=== PATIENT | female | born 1930 | race Caucasian/White ===

== ENCOUNTER 2017-06-19 16:30 | Inpatient (IN) ==
[2017-06-19] MEDS ORDERED: Ipratropium/Albuterol Neb 3 ML IH ONE (16:58)
[2017-06-19] MEDS ORDERED: methylPREDNISolone 125 MG/2 ML VIAL IVP ONE (16:59)
[2017-06-19 17:34] LABS: Calcium 9.4 mg/dL (8.6-10.8); Potassium 4.5 mEq/L (3.5-4.5)
[2017-06-19 17:36] LABS: Basophils % 0.1 %; Eosinophils % 0.1 %; Hematocrit 26.2 % (35.3-44.9); Hemoglobin 7.6 g/dL (11.5-15.4); Immature Granulocytes % 0.6 % (0-4); Immature Platelets 9.4 % (1.1-6.1); Lymphocytes # 0.6 K/mcL (0.6-4.6); Lymphocytes % 4.5 %; Mean Corpuscular Hemoglobin 24.9 pg (28.0-33.3); Mean Corpuscular Volume 85.9 fL (83.0-100.0); Mean Platelet Volume 11.5 fL (9.4-12.4); Monocytes # 0.7 K/mcL (0.0-1.3); Monocytes % 5.6 %; Neutrophils # 11.1 K/mcL (1.6-8.9); Platelet Count 108 K/mcL (140-400); Red Blood Count 3.05 M/mcL (3.82-4.97); Red Cell Distribution Width 22.5 % (11.5-14.5); Segmented Neutrophils % 89.1 %
[2017-06-19] MEDS ORDERED: Furosemide 40 MG/4 ML VIAL IVP ONE (17:53)
--- NOTE | 2017-06-19 17:54 | Emergency Department Note ---
Disposition Clinical Impression: Weakness, Elevated troponin Acute exacerbation of CHF (congestive heart failure) Qualifiers: Congestive heart failure type: unspecified congestive heart failure type Qualified Code(s): I50.9 - Heart failure, unspecified Anemia Qualifiers: Anemia type: unspecified type Qualified Code(s): D64.9 - Anemia, unspecified Disposition: Admitted As Inpatient Condition: Fair Time of Disposition: 19:00 General Adult HPI - General Chief complaint: ED Upper Respiratory Infection Stated complaint: Cough, congestion Time Seen by Provider: 06/19/17 16:37 Source: patient, EMS Mode of arrival: EMS Limitations: no limitations Nursing Notes Reviewed: Yes Vital Signs Reviewed: Yes - History of Present Illness HPI Narrative: 86-year-old female history of CHF, atrial fibrillation, hypertension, and COPD on oxygen supplementation presents to the ED via EMS for cough, congestion, and shortness of breath. Patient is poor historian. Patients coming from [facility]. For past 2 days she has been having increased sputum production and dyspnea. She denies any chest pain. It was reported that they have noticed this increase in swelling to her legs. Denies any fever or chills. Has been increasingly more weak and noticed loose diarrhea. Mild abdominal discomfort. Denies any bloody stool, black tarry stools, or hemoptysis. Her family is at bedside and reports recent admission for exacerbation of congestive heart failure. Reports also history of GI bleed. She was at [facility] required 2 units of packed RBCs. Pain Scale: 8 - Related Data Home Medications Medication Instructions Recorded Confirmed Acetaminophen [Tylenol] 325 mg PO Q6HR PRN 06/19/17 06/19/17 Allopurinol [Zyloprim 100 MG] 100 mg PO DAILY 06/19/17 06/19/17 Atorvastatin [Lipitor] 40 mg PO HS 06/19/17 06/19/17 Carvedilol 12.5 mg PO BID 06/19/17 06/19/17 Chlordiazepoxide [Librium] 10 mg PO DAILY 06/19/17 06/19/17 Citalopram [CeleXA] 10 mg PO DAILY 06/19/17 06/19/17 Diltiazem CD (24hr) [Cardizem CD] 120 mg PO DAILY 06/19/17 06/19/17 Furosemide [Lasix] 40 mg PO BID 06/19/17 06/19/17 Insulin Glargine,Hum.rec.anlog 30 unit SQ HS 06/19/17 06/19/17 [Lantus Solostar] Lisinopril [Zestril] 5 mg PO DAILY 06/19/17 06/19/17 Potassium Chloride [K-Tab ER] 20 meq PO DAILY 06/19/17 06/19/17 Allergies Allergy/AdvReac Type Severity Reaction Status Date / Time egg Allergy Hives Verified 06/19/17 18:29 morphine Allergy Hives Verified 06/19/17 18:29 nitrofurantoin Allergy Hives Verified 06/19/17 18:29 Sulfa (Sulfonamide Allergy Hives Verified 06/19/17 18:29 Antibiotics) All systems ED: reviewed and negative except as stated. Review of Systems: As Per HPI Constitutional: Reports: weakness. Denies: fever, chills ENT ED: Reports: congestion. Denies: dysphagia Cardiovascular: Reports: dyspnea on exertion. Denies: chest pain Respiratory: Reports: cough, dyspnea, wheezes Gastrointestinal: Reports: abdominal pain, diarrhea. Denies: nausea, vomiting Genitourinary: Denies: urgency, dysuria Musculoskeletal: Denies: back pain Integumentary: Denies: rash, abrasion Neurological: Reports: weakness. Denies: headache Past Medical History - Past Medical History Attestation: Yes The following information was validated with the patient. Source: old records reviewed Medical history: Reports: atrial fibrillation, CHF, COPD, diabetes, GERD, hyperlipidemia, myocardial infarction - Social History Smoking Status: Never smoker Smokeless Tobacco Status: No Alcohol use: Reports: none Drug use: Reports: none Physical Exam - General Limitations: no limitations General appearance: alert, in no apparent distress - Head Head exam: atraumatic, normocephalic, normal inspection - Eye Eye exam: Present: normal appearance, PERRL, EOMI - ENT ENT exam: normal exam, normal oropharynx, mucous membranes moist - Neck Neck exam: Present: normal inspection, full ROM, trachea midline - Chest Chest inspection: Present: normal inspection, symmetric chest wall rise, other ( pacemaker) - Respiratory Respiratory exam: Present: normal lung sounds bilaterally, wheezes. Absent: respiratory distress, accessory muscle use - Cardiovascular Cardiovascular exam: Present: regular rate, normal rhythm, normal heart sounds - Abdominal Exam Abdominal exam: Present: soft, Non-Tender, normal bowel sounds. Absent: tenderness, distention, guarding, rebound, rigidity - Rectal Exam Rectal exam: Present: heme (-) stool. Absent: black stool, bloody stool - Extremities Exam Extremities exam: Present: normal inspection, full ROM, pedal edema (nonpitting , symmetrical bilaterally). Absent: tenderness - Skin Skin exam: Present: warm, dry, intact, normal color. Absent: cyanosis, diaphoresis Course Course Narrative: 86-year-old female history of CHF and COPD presents with dyspnea and cough congestion. She was recently admitted for acute exacerbation of congestive heart failure. She has bilateral leg swelling. She is currently on 2 L oxygen supplementation with good oxygen saturation. No acute respiratory distress. On exam she has bilateral wheezing. She takes Lasix twice daily 40 mg. Denies any chest pain. Her abdomen is soft and mildly tender. Will obtain some labs and circular sawyer stone as a combination COPD exacerbation and possible congestive heart failure exacerbation. DuoNeb treatment ordered. Steroids given. - Reevaluation(s) Reevaluation #1: Critical troponin 0.04. Patient denies any chest pain. EKG shows ventricular paced rhythm, no Sgarbossa criteria. No old EKG for comparison available. She has some renal insufficiency possible demand ischemia she is in acute congestive heart failure seen on chest x-ray as well as elevated BNP 812. Her BUN is elevated 53 and she has a low hemoglobin 7.6. Her last was 8.2 and 7.4. A rectal exam performed at bedside by my ED attending Dr. Restrepo did not reveal bloody stool or hemoccult positive. Family states she was recently transfused 2 units due to low hemoglobin. She was also told that she had a G.I. bleed without known source. I believe her symptoms are likely secondary to her congestive heart failure. Patient has been given 40 mg IV Lasix for diuresis. Would recommend continued COPD treatment as well. Impression is dyspnea, cough, elevated troponin, CHF exacerbation, anemia. Reevaluation #2: Patient's oxygen saturation has come down the 94% on 3 liter nasal cannula. She has had some appropriate urine output after Lasix. Will place her on a BiPAP to assist with her symptoms. Patient is tolerating without difficulty. Time: 19:10 - Consultations Consultation #1: Spoke with admitting hospitalist Juma Li who accepts patient for admission for weakness, acute exacerbation CHF, dyspnea, elevated troponin. No further orders at this time. Vital Signs Temperature 97.9 F 06/19/17 16:32 Pulse Rate 121 06/19/17 16:32 Respiratory Rate 30 06/19/17 16:32 Blood Pressure 113/69 06/19/17 16:32 O2 Sat by Pulse Oximetry 100 06/19/17 16:32 Temperature 98.0 F 06/20/17 06:50 Pulse Rate 111 06/20/17 06:50 Respiratory Rate 18 06/20/17 06:50 Blood Pressure 113/75 06/20/17 06:50 O2 Sat by Pulse Oximetry 97 06/20/17 06:50 Oxygen Delivery Oxygen Delivery Nasal Cannula Medical Decision Making - MDM Narrative Medical decision making narrative: Patient was discussed with my attending physician who agrees with ED management and final disposition. They independently evaluated the patient. Please refer to their attestation to this encounter for additional information. This note was generated by [employer] voice recognition software and as a result grammatical or spelling errors may occur using this program. - Medical Records Medical records reviewed: Yes I reviewed the patient's medical records. - Lab Data Lab results reviewed: Yes I reviewed the patient's lab results. Result diagrams: 06/20/17 04:30 06/20/17 08:19 Lab Results 06/19/17 06/19/17 06/19/17 Range/Units 17:05 17:05 17:05 WBC 12.4 H (4.3-11.1) K/mcL RBC 3.05 L (3.82-4.97) M/mcL Hgb 7.6 L (11.5-15.4) g/dL Hct 26.2 L (35.3-44.9) % MCV 85.9 (83.0-100.0) fL MCH 24.9 L (28.0-33.3) pg MCHC 29.0 L (31.6-35.5) g/dL RDW 22.5 H (11.5-14.5) % Plt Count 108 L (140-400) K/mcL MPV 11.5 (9.4-12.4) fL Immature Gran % 0.6 (0-4) % Seg Neutrophils % 89.1 % Lymphocytes % 4.5 % Monocytes % 5.6 % Eosinophils % 0.1 % Basophils % 0.1 % Neutrophils # 11.1 H (1.6-8.9) K/mcL Lymphocytes # 0.6 (0.6-4.6) K/mcL Monocytes # 0.7 (0.0-1.3) K/mcL Eosinophils # 0.0 (0.0-0.6) K/mcL Basophils # 0.0 (0.0-0.2) K/mcL Immature Plt Fraction 9.4 H (1.1-6.1) % Sodium 141 (136-145) mEq/L Potassium 4.5 (3.5-4.5) mEq/L Chloride 98 (98-109) mEq/L Carbon Dioxide 30 H (19-29) mEq/L BUN 53 H (7-20) mg/dL Creatinine 1.92 H (0.57-1.11) mg/dL Est GFR ( Amer) 30 L (> 60) Est GFR (Non-Af Amer) 25 L (> 60) BUN/Creatinine Ratio 28 H (6-26) Glucose 141 H (70-99) mg/dL Calculated Osmolality 309 H (280-300) Lactic Acid 1.3 (0.5-2.2) mmol/L Calcium 9.4 (8.6-10.8) mg/dL Troponin I (0-0.03) ng/mL B-Natriuretic Peptide (0-100) pg/mL 06/19/17 06/19/17 Range/Units 17:05 17:05 WBC (4.3-11.1) K/mcL RBC (3.82-4.97) M/mcL Hgb (11.5-15.4) g/dL Hct (35.3-44.9) % MCV (83.0-100.0) fL MCH (28.0-33.3) pg MCHC (31.6-35.5) g/dL RDW (11.5-14.5) % Plt Count (140-400) K/mcL MPV (9.4-12.4) fL Immature Gran % (0-4) % Seg Neutrophils % % Lymphocytes % % Monocytes % % Eosinophils % % Basophils % % Neutrophils # (1.6-8.9) K/mcL Lymphocytes # (0.6-4.6) K/mcL Monocytes # (0.0-1.3) K/mcL Eosinophils # (0.0-0.6) K/mcL Basophils # (0.0-0.2) K/mcL Immature Plt Fraction (1.1-6.1) % Sodium (136-145) mEq/L Potassium (3.5-4.5) mEq/L Chloride (98-109) mEq/L Carbon Dioxide (19-29) mEq/L BUN (7-20) mg/dL Creatinine (0.57-1.11) mg/dL Est GFR ( Amer) (> 60) Est GFR (Non-Af Amer) (> 60) BUN/Creatinine Ratio (6-26) Glucose (70-99) mg/dL Calculated Osmolality (280-300) Lactic Acid (0.5-2.2) mmol/L Calcium (8.6-10.8) mg/dL Troponin I 0.04 H* (0-0.03) ng/mL B-Natriuretic Peptide 812 H (0-100) pg/mL - Radiology Data Radiology results reviewed: Yes I reviewed the patient's radiology results. Chest X-Ray 06/19/17 16:45 IMPRESSION: Cardiomegaly with pulmonary edema and moderate layering right pleural effusion in keeping with acute congestive heart failure. D/ / Kvng Mattson / Kvng Mattson Interpreting Provider: Kvng Mattson - EKG Data EKG #1 EKG attestation: Yes I reviewed and interpreted this EKG. EKG results narrative: EKG performed 1635 ventricular pacemaker 78 beats per minutes QRS 136, no Sgarbossa criteria. No old EKG available for comparison. Attestation Statement - Attestation Attestation: I, Juvenal Restrepo, examined this patient and my medical decision-making was reviewed with the DRIVER MERCHANDISER/PA/Advanced Practice Nurse/Resident Physician. I agree with the documented findings, disposition and treatment plan as described except to the extent set forth below. 86-year-old female presents emergency Department with concerns of weakness, fatigue, cough and shortness of breath. Patient was recently admitted to [facility] for treatment of CHF exacerbation as well as anemia. She required multiple units of packed blood cells, she had a colonoscopy and an endoscopy which did not find the source of bleeding. Family states the patient' s symptoms had worsened after their discharge. Chest x-ray shows pulmonary edema and patient has elevated BNP. Rectal exam performed by myself shows guaiac negative stool. Patient started to desat to 87% in the emergency department, she was started on BiPAP in the emergency department. She was given Lasix in the ED. Patient will be admitted to the hospital for further evaluation of likely CHF exacerbation.
[2017-06-19] MEDS ORDERED: Ondansetron 4 MG/2 ML VIAL IVP PRN (21:03)
[2017-06-19] MEDS ORDERED: Naloxone 0.4 MG/ML INJ IVP PRN (21:03)
[2017-06-19] MEDS ORDERED: Albuterol 2.5 MG/3 ML NEBULIZER IH PRN (21:09)
[2017-06-19] MEDS ORDERED: *HR* Dextrose 50 % in Water (Syg) 50 ML SYRINGE IVP PRN (21:15)
[2017-06-19] MEDS ORDERED: Dextrose Gel 15 GM PO PRN ×2 (21:15)
[2017-06-19] MEDS ORDERED: D5% in Water 1,000 ML IVC PRN (21:15)
--- NOTE | 2017-06-19 21:36 | Internal Med History&Physical ---
<Yelitza Mcnamara - Last Filed: 06/19/17 22:09> Date of Encounter: 06/19/17 Time of Encounter: 20:30 Assessment and Plan (1) Acute exacerbation of CHF (congestive heart failure) Current visit: Yes Status: Acute Patient has been experiencing increasing shortness of breath weakness cough and congestion lower extremity edema. BNP is elevated a 12 chest x-ray shows pulmonary edema moderately right pleural effusion. We will continue with Lasix IV overnight Monitor creatinine and electrolytes Continuous cardiac monitoring Trend troponins We will give Rocephin for the pleural effusion and continue to monitor Monitor intake and output and daily weights Fluid restriction 1500 mL's Obtain cardiac echo Qualifiers: Congestive heart failure type: unspecified congestive heart failure type Qualified Code(s): I50.9 - Heart failure, unspecified (2) Diabetes mellitus Current visit: Yes Status: Acute Accu-Cheks before meals at bedtime with sliding-scale insulin Diabetic diet Qualifiers: Diabetes mellitus type: type 2 Diabetes mellitus complication status: without complication Diabetes mellitus terminal supervisor insulin use: with long-term use Qualified Code(s): E11.9 - Type 2 diabetes mellitus without complications ; Z79.4 - residential (current) use of insulin; Z79.4 - residential (current) use of insulin; Z79.4 - residential (current) use of insulin; Z79.4 - residential ( current) use of insulin (3) Anemia Current visit: Yes Status: Acute We will continue to monitor hemoglobin-patient was recently treated for GI bleed and received 2 units of PRBCs at outlying facility. Apparently the workup there showed no source of bleeding. Hemoccult was negative as a hemoglobin 7.62 days ago was 7.4 and we will continue to monitor Qualifiers: Anemia type: unspecified type Qualified Code(s): D64.9 - Anemia, unspecified (4) Elevated troponin Current visit: Yes Status: Acute Most likely this is related to demand ischemia patient is not having any chest pain there are no ST changes on EKG. We will continue to trend troponin (5) [id number] kidney injury Current visit: Yes Status: Acute It appears patient has history of CK D3. Creatinine is 1.9 to previously was 1.75 suspect this is related to CHF exacerbation. We will diurese patient overnight and closely watch creatinine Monitor intake and output daily weights Avoid nephrotoxins-we will hold lisinopril for now and resume once back to baseline Qualifiers: Acute renal failure type: unspecified Chronic kidney disease stage: stage 3 (moderate) Qualified Code(s): N17.9 - Acute kidney failure, unspecified; N18.3 - Chronic kidney disease, stage 3 (moderate); N18.3 - Chronic kidney disease, stage 3 (moderate) (6) DVT prophylaxis Current visit: Yes Status: Acute Heparin subcutaneous Internal Medicine - H&P: HPI Chief complaint: SOB Admitted From: Emergency Dept Plans for Post Hospital Care: Home History of present illness: Ms. Aguilar is a 86 year old female past medical history of CHF pacemaker AICD atrial fibrillation hypertension COPD oxygen dependent diabetes. Information obtained from medical records due to patient's cognitive state and no family at bedside. According to records the patient is a resident at [facility]. According to nursing staff patient the past 2 days she has been experiencing increasing shortness of breath and sputum production increase in lower extremity edema mild abdominal discomfort. There has not been any chest pain fevers or chills melena hematochezia or hematemesis. Apparently she has had a recent hospitalization at outlying facility-[facility]-where she was treated for exacerbation of CHF and GI bleed. She apparently received 2 units of PRBCs and that the GI bleed without known source. She presented to the ER with the above complaints. Work was obtained which did reveal some renal insufficiency as well as an elevated troponin and BNP. Her hemoglobin 7.6. He had to do a Hemoccult which was negative Chest x-ray did reveal pulmonary edema and a moderate layering right pleural effusion. Patient was given IV Lasix and placed on BiPAP she has been admitted for further workup and evaluation. Presently patient is oriented to name only she does follow simple commands she is hemodynamically stable at this time does not appear to be in any respiratory distress did review his case with Dr. Moore who agrees with plan. Past Med Surg Social Fam HX - Past Medical History Medical history: atrial fibrillation, CHF, COPD, diabetes, GERD, hyperlipidemia , myocardial infarction - Social History Smoking Status: Never smoker Smokeless Tobacco Status: No Alcohol use: none Drug use: none - Additional Family History Additional family history: unknown Internal Medicine - H&P: Meds Acetaminophen [Tylenol] 325 mg PO Q6HR PRN 06/19/17 [History] Allopurinol [Zyloprim 100 MG] 100 mg PO DAILY 06/19/17 [History] Atorvastatin [Lipitor] 40 mg PO HS 06/19/17 [History] Carvedilol 12.5 mg PO BID 06/19/17 [History] Chlordiazepoxide [Librium] 10 mg PO DAILY 06/19/17 [History] Citalopram [CeleXA] 10 mg PO DAILY 06/19/17 [History] Diltiazem CD (24hr) [Cardizem CD] 120 mg PO DAILY 06/19/17 [History] Furosemide [Lasix] 40 mg PO BID 06/19/17 [History] Insulin Glargine,Hum.rec.anlog [Lantus Solostar] 30 unit SQ HS 06/19/17 [History ] Lisinopril [Zestril] 5 mg PO DAILY 06/19/17 [History] Potassium Chloride [K-Tab ER] 20 meq PO DAILY 06/19/17 [History] 3 Allergy/AdvReac Type Severity Reaction Status Date / Time egg Allergy Hives Verified 06/19/17 18:29 morphine Allergy Hives Verified 06/19/17 18:29 nitrofurantoin Allergy Hives Verified 06/19/17 18:29 Sulfa (Sulfonamide Allergy Hives Verified 06/19/17 18:29 Antibiotics) ROS unobtainable: due to mental status All Systems PM: A 10-system review of systems was performed and is negative for pertinent findings except as documented above in the HPI. - Constitutional Vitals: Temp Pulse Resp BP Pulse Ox 97.9 F 99 17 122/62 99 06/19/17 16:32 06/19/17 18:45 06/19/17 20:24 06/19/17 18:45 06/19/17 20:24 General appearance: Present: cooperative, A&O X 1 - Head Head exam: Present: atraumatic, normocephalic - Eye Eye exam: Present: PERRL, conjuntiva pink, sclera anicteric Pupils: Present: PERRL - Neck Neck exam general surgery: Present: supple, trachea midline. Absent: lymphadenopathy - Respiratory Respiratory exam: Present: rhonchi. Absent: accessory muscle use, rales, wheezes - Cardiovascular Cardiovascular exam: Present: RRR, +S1, +S2. Absent: diastolic murmur, gallop, rubs, systolic murmur - GI/Abdominal GI/Abdominal exam: Present: normal bowel sounds, soft, no peritoneal signs. Absent: distended, tenderness - Extremities Exam Extremities exam: Present: pedal edema, warm, radial pulses palpable and symmetrical. Absent: calf tenderness, cyanotic - Neurological Exam Neurological exam: Present: CN II-XII intact, oriented X3, no focal deficits. Absent: pronater drift, facial droop, speech deficit - Skin Skin exam: Present: dry, intact Internal Med - H&P Results - Labs CBC & Chem 7: 06/19/17 17:05 06/19/17 17:05 - EKG Data Prior EKG available for review: no EKG comments: 06/19/17 21:58 V paced - Diagnostic Studies Other Images Additional comments: Chest X-Ray 06/19/17 16:45 IMPRESSION: Cardiomegaly with pulmonary edema and moderate layering right pleural effusion in keeping with acute congestive heart failure. D/ / Kvng Mattson / Kvng Mattson Interpreting Provider: Kvng Mattson <Lizy Moore - Last Filed: 06/20/17 04:46> Date of Encounter: 06/19/17 Internal Medicine - H&P: HPI History of present illness: Ms. Aguilar is a 86 year old female Past Med Surg Social Fam HX - Family History Father Hx Family Cancer: Yes All Systems PM: A 10-system review of systems was performed and is negative for pertinent findings except as documented above in the HPI. - Constitutional Vitals: Temp Pulse Resp BP Pulse Ox 97.8 F 105 15 136/76 96 06/20/17 04:00 06/20/17 04:00 06/20/17 04:00 06/20/17 04:00 06/20/17 04:00 Internal Med - H&P Results - Labs CBC & Chem 7: 06/19/17 17:05 06/19/17 17:05 Labs: Cardiac Enzymes 06/19/17 Range/Units 22:10 Troponin I 0.04 H* (0-0.03) ng/mL - Attending Attestation I have personally and independently seen and examined the patient and discussed the finding and plan of care with nurse practitioner/resident. Patient examination showed shallow breath sounds scattered wheezing She has positive JVD on exam with wheezing and left-sided rhonchi. heart rate rhythm regular no gallop rhythm abdomen soft nontender no organomegaly. Patient has come in with confusion. By the time I saw her she is able to talk to me. She came in with shortness of breath and says she does not feel much better. I suspect she has combination of COPD and CHF therefore we will diurese her as it does give her DuoNeb and steroids. BiPAP can be tried.
[2017-06-19] MEDS: Ipratropium/Albuterol Neb 3 ML IH SCH (22:55)
[2017-06-19] MEDS: cefTRIAXone 1,000 MG in Water for inj. (sterile) 10 ML IVP SCH (23:10)
[2017-06-20] MEDS: Ipratropium/Albuterol Neb 3 ML IH SCH ×4 (04:00→22:37)
[2017-06-20 04:41] LABS: Hemoglobin 8.3 g/dL (11.5-15.4); Platelet Count 105 K/mcL (140-400); Red Cell Distribution Width 22.4 % (11.5-14.5)
[2017-06-20 04:43] LABS: Hematocrit 28.1 % (35.3-44.9); Immature Platelets 8.3 % (1.1-6.1); Mean Corpuscular HGB Conc 29.5 g/dL (31.6-35.5); Mean Corpuscular Hemoglobin 24.8 pg (28.0-33.3); Mean Corpuscular Volume 83.9 fL (83.0-100.0); Mean Platelet Volume 11.7 fL (9.4-12.4); Red Blood Count 3.35 M/mcL (3.82-4.97)
[2017-06-20 05:02] LABS: Calcium 9.4 mg/dL (8.6-10.8); Magnesium 1.9 mg/dL (1.6-2.6)
[2017-06-20 05:09] LABS: Potassium 5.6 mEq/L (3.5-4.5)
[2017-06-20] MEDS: *HR* Heparin 5,000 UNIT/ML VIAL SQ SCH ×2 (05:24→16:30)
[2017-06-20 05:25] LABS: Anisocytosis 2+ (Not Present); Lymphocytes # 0.8 K/mcL (0.6-4.6); Monocytes # 1.4 K/mcL (0.0-1.3); Neutrophils # 11.8 K/mcL (1.6-8.9); Platelet Estimate Decreased (Normal); Poikilocytosis 2+ (Not Present); Schistocytes 1+ (Not Present)
[2017-06-20 05:26] LABS: Polychromasia 1+ (Not Present); Target Cells 1+ (Not Present)
[2017-06-20] MEDS ORDERED: Furosemide 40 MG/4 ML VIAL IVP SCH (09:00)
[2017-06-20] MEDS: Insulin LISPRO 300 UNITS/3 ML VIAL SQ SCH ×4 (10:20→22:02)
[2017-06-20] MEDS: Diltiazem CD (24hr) 120 MG CAPSULE PO SCH (10:23)
[2017-06-20] MEDS: Acetaminophen 325 MG TABLET PO PRN (10:30)
[2017-06-20] MEDS: Furosemide 40 MG/4 ML VIAL IVP SCH (15:40)
--- NOTE | 2017-06-20 16:53 | Internal Med Progress Note ---
Date of Encounter: 06/20/17 Time of Encounter: 11:00 - Assessment and plan (1) Acute exacerbation of CHF (congestive heart failure) Current Visit: Yes Status: Acute Assessment and plan: Echocardiogram shows normal left ventricular ejection fraction however dilated RV with hypokinesis. There is a PFO atrial septal defect with [id number] shunt which could account for right ventricular failure. We will treat the patient with IV Lasix. Increase to 40 mg IV 3 times a day. Strict I's and O's. Fluid restriction. Sodium restriction diet. Given echocardiogram findings we will consult cardiology. Qualifiers: Congestive heart failure type: systolic Qualified Code(s): I50.23 - Acute on chronic systolic (congestive) heart failure (2) Elevated troponin Current Visit: Yes Status: Acute Assessment and plan: Flat and adynamic troponin elevation likely secondary to CHF exacerbation. Follow-up with cardiology. (3) Anemia Current Visit: Yes Status: Acute Assessment and plan: Monitor hemoglobin and hematocrit. Qualifiers: Anemia type: unspecified type Qualified Code(s): D64.9 - Anemia, unspecified (4) Diabetes mellitus Current Visit: Yes Status: Acute Assessment and plan: Insulin sliding scale. Fingerstick Accu-Cheks 4 times daily. Diabetic diet. Qualifiers: Diabetes mellitus type: type 2 Diabetes mellitus complication status: without complication Diabetes mellitus exterminator helper termite insulin use: with exterminator helper termite use Qualified Code(s): E11.9 - Type 2 diabetes mellitus without complications ; Z79.4 - intermediate (current) use of insulin; Z79.4 - vermin exterminator (current) use of insulin; Z79.4 - vermin exterminator (current) use of insulin; Z79.4 - intermediate ( current) use of insulin (5) Dbrdl-vl-mthoran kidney injury Current Visit: Yes Status: Acute Assessment and plan: Monitor kidney function closely. Avoid nephrotoxins including nonsteroidal anti -inflammatory medication. Qualifiers: Acute renal failure type: unspecified Chronic kidney disease stage: stage 3 (moderate) Qualified Code(s): N17.9 - Acute kidney failure, unspecified; N18.3 - Chronic kidney disease, stage 3 (moderate); N18.3 - Chronic kidney disease, stage 3 (moderate) (6) DVT prophylaxis Current Visit: Yes Status: Acute Assessment and plan: Subcutaneous heparin. - Subjective Interval history: Patient presented to the hospital for shortness of breath. Currently reports shortness of breath at rest mild to moderate, worse with minimal exertion. She denies associated fevers and chills. Reports associated dry cough. She has had worsening lower extremity edema over the last 2 weeks. - Constitutional Vitals: Temp Pulse Resp BP Pulse Ox 98.6 F 83 17 96/53 98 06/20/17 15:50 06/20/17 15:50 06/20/17 16:11 06/20/17 15:50 06/20/17 16:11 General appearance: Present: cooperative, A&O X 1 - Eye Eye exam: Present: PERRL, conjuntiva pink, sclera anicteric Pupils: Present: PERRL - Respiratory Respiratory exam: Present: CTAB, wheezes. Absent: accessory muscle use, rales, rhonchi - Cardiovascular Cardiovascular exam: Present: JVD (JVD positive to the angle of the mandible), RRR, +S1, +S2. Absent: diastolic murmur, gallop, rubs, systolic murmur - GI/Abdominal GI/Abdominal exam: Present: normal bowel sounds, soft, no peritoneal signs. Absent: distended, tenderness - Extremities Exam Extremities exam: Present: pedal edema (2+ lower x-ray pending edema), warm, radial pulses palpable and symmetrical. Absent: calf tenderness, cyanotic - Neurological Exam Neurological exam: Present: CN II-XII intact, oriented X3, no focal deficits. Absent: pronater drift, facial droop, speech deficit - Skin Skin exam: Present: dry, intact Internal Medicine: Result - Labs CBC & Chem 7: 06/20/17 04:30 06/20/17 08:19 Labs: Short CBC 06/20/17 Range/Units 04:30 WBC 14.0 H (4.3-11.1) K/mcL Hgb 8.3 L (11.5-15.4) g/dL Hct 28.1 L (35.3-44.9) % Plt Count 105 L (140-400) K/mcL Neutrophils # 11.8 H (1.6-8.9) K/mcL BMP 06/20/17 06/20/17 04:30 08:19 Sodium 143 Potassium 5.6 H D 4.5 D Chloride 102 Carbon Dioxide 24 BUN 56 H Creatinine 1.97 H Glucose 182 H Calcium 9.4 Cardiac Enzymes 06/19/17 06/20/17 Range/Units 22:10 04:30 Troponin I 0.04 H* 0.04 H* (0-0.03) ng/mL - Impressions Impressions Echocardiogram 06/20/17 21:07 Impressions: LVEF 55-60%. Indeterminate diastolic function. Mildly dilated right ventricle. Mild right ventricular hypokinesis. Severely dilated left atrium. Mildly dilated right atrium. PFO with left to right shunt. Mild mitral regurgitation. Mild MV Prolapse < 50% respiratory change. A device lead was visualized in the right atrium and right ventricle. Mild pulmonary hypertension. Left Ventricular Wall Motion: Rest Echo Findings All wall segments showed normal motion. Findings: Study Quality * Technically adequate exam. ECG Findings * Paced rhythm. Left Ventricle * LVEF 55-60%. * Indeterminate diastolic function. Right Ventricle * Mildly dilated right ventricle. * Mild right ventricular hypokinesis. Left Atrium * Severely dilated left atrium. Right Atrium * Mildly dilated right atrium. Interatrial Septum * PFO with left to right shunt. Aortic Valve * Trileaflet aortic valve. * Trileaflet aortic valve with normal function. Mitral Valve * Mild mitral regurgitation. * Mild MV Prolapse Tricuspid Valve * Moderate tricuspid regurgitation. Pulmonic Valve * Mild pulmonic regurgitation. Aorta * Normally sized aortic root. Pericardium * The pericardium appears normal. IVC * < 50% respiratory change. Device lead * A device lead was visualized in the right atrium and right ventricle. - VTE Documentation of Mechanical Device: Intermittent pneumatic compression device Consult Discharge Plan - Plan Referrals: NONE,PCP [Primary Care Provider] -
[2017-06-20] MEDS: cefTRIAXone 1,000 MG in Water for inj. (sterile) 10 ML IVP SCH (20:32)
--- NOTE | 2017-06-20 20:32 | Cardiology Consult Note ---
Date of Encounter: 06/20/17 Time of Encounter: 20:28 Assessment and Plan (1) CHF (congestive heart failure) Current Visit: Yes Status: Acute LVEF preserved on ECHO with mild dilatation/HK of the RV. Evidence of both left and right HF. Possible Cor pulmonale with severe COPD. Previous systolic HF due to placement of ICD. Will need records from outside hospital and her woodworking belt sander to clarify. Continue gentle diureses for now and CHF meds. Qualifiers: Congestive heart failure type: combined Congestive heart failure chronicity : acute Qualified Code(s): I50.41 - Acute combined systolic (congestive) and diastolic (congestive) heart failure (2) Atrial fibrillation Current Visit: Yes Status: Chronic Possible Chronic afib with dilated LA, not on AC likely due to previous hx of GI Bleed. Pt poor historian will need to obtain records for review. Continue rate control Qualifiers: Atrial fibrillation type: chronic Qualified Code(s): I48.2 - Chronic atrial fibrillation (3) Anemia Current Visit: Yes Status: Acute Hx of GI Bleed but possible high output CHF from severe anemia resulting in decompensated systolic CHF. Recent 2 untis of PRBCs at outside hospital. No plans for ischemic work up at this time due to inability to start ACS anticoagualt and antiplatelet meds. Continue medical management at this time unless pt is candidate for blood thinners. Qualifiers: Anemia type: unspecified type Qualified Code(s): D64.9 - Anemia, unspecified Discussion w patient/family: The assessment and plan as outlined above was discussed with the patient and/or family members who expressed understanding and agreement. All questions were answered. Thank you for involving us in the care of your patient. Please call with any questions. History of Present Illness Consult date: 06/20/17 Consult reason: CHF Chief complaint: SOB History of present illness: Ms. Aguilar is a 86 year old female poor historian presents to the ED with few days of worsening SOB, orhtopnea and PND. This was associated with worsening lurdes LE edema the pt noticed. Cxray reveals Pulmonary edema and R pleural Effusion. She denies CP and has a h/o afib, COPD on home oxygen, CHF s/p ICD and a recent GI Bleed currently Hgb 7.6. ECHO was performed today reveals preserved LVEF with mild RV enlargement/ hypokines. An incidental PFO was noted with doppler not confirmed with agitated saline. Mild Pulm HTN also noted. Currently being diuresed by primary team and feels better. Past Med Surg Social Fam HX - Past Medical History Medical history: atrial fibrillation, CHF, COPD, diabetes, GERD, hyperlipidemia , myocardial infarction - Social History Smoking Status: Never smoker Smokeless Tobacco Status: No Alcohol use: none Drug use: none - Family History Father Hx Family Cancer: Yes Medications and Allergies Acetaminophen [Tylenol] 325 mg PO Q6HR PRN 06/19/17 [History] Allopurinol [Zyloprim 100 MG] 100 mg PO DAILY 06/19/17 [History] Atorvastatin [Lipitor] 40 mg PO HS 06/19/17 [History] Carvedilol 12.5 mg PO BID 06/19/17 [History] Chlordiazepoxide [Librium] 10 mg PO DAILY 06/19/17 [History] Citalopram [CeleXA] 10 mg PO DAILY 06/19/17 [History] Diltiazem CD (24hr) [Cardizem CD] 120 mg PO DAILY 06/19/17 [History] Furosemide [Lasix] 40 mg PO BID 06/19/17 [History] Insulin Glargine,Hum.rec.anlog [Lantus Solostar] 30 unit SQ HS 06/19/17 [History ] Lisinopril [Zestril] 5 mg PO DAILY 06/19/17 [History] Potassium Chloride [K-Tab ER] 20 meq PO DAILY 06/19/17 [History] 3 Allergy/AdvReac Type Severity Reaction Status Date / Time egg Allergy Hives Verified 06/19/17 18:29 morphine Allergy Hives Verified 06/19/17 18:29 nitrofurantoin Allergy Hives Verified 06/19/17 18:29 Sulfa (Sulfonamide Allergy Hives Verified 06/19/17 18:29 Antibiotics) All Systems Review: A 10-system review of systems was performed and is negative for pertinent findings except as documented above in the HPI. Results 06/20/17 04:30 06/20/17 08:19 Lab Results 06/19/17 06/19/17 06/20/17 22:10 22:10 04:30 WBC 14.0 H Hgb 8.3 L Hct 28.1 L Plt Count 105 L Sodium Potassium Chloride Carbon Dioxide BUN Creatinine Glucose Calcium Magnesium 1.7 Troponin I 0.04 H* 06/20/17 06/20/17 06/20/17 04:30 04:30 08:19 WBC Hgb Hct Plt Count Sodium 143 Potassium 5.6 H D 4.5 D Chloride 102 Carbon Dioxide 24 BUN 56 H Creatinine 1.97 H Glucose 182 H Calcium 9.4 Magnesium 1.9 Troponin I 0.04 H* Consult Discharge Plan - Plan Referrals: NONE,PCP [Primary Care Provider] -
[2017-06-21] MEDS: Ipratropium/Albuterol Neb 3 ML IH SCH ×4 (04:22→20:31)
[2017-06-21] MEDS: *HR* Heparin 5,000 UNIT/ML VIAL SQ SCH ×2 (06:14→18:06)
[2017-06-21 06:20] LABS: Basophils % 0.1 %; Hematocrit 24.6 % (35.3-44.9); Hemoglobin 7.4 g/dL (11.5-15.4); Immature Granulocytes % 0.3 % (0-4); Lymphocytes # 0.4 K/mcL (0.6-4.6); Lymphocytes % 3.7 %; Mean Corpuscular HGB Conc 30.1 g/dL (31.6-35.5); Mean Corpuscular Hemoglobin 25.2 pg (28.0-33.3); Mean Corpuscular Volume 83.7 fL (83.0-100.0); Mean Platelet Volume 11.8 fL (9.4-12.4); Monocytes # 0.7 K/mcL (0.0-1.3); Monocytes % 5.7 %; Neutrophils # 10.2 K/mcL (1.6-8.9); Platelet Count 134 K/mcL (140-400); Red Blood Count 2.94 M/mcL (3.82-4.97); Red Cell Distribution Width 22.5 % (11.5-14.5); Segmented Neutrophils % 90.2 %
[2017-06-21 06:21] LABS: Calcium 8.7 mg/dL (8.6-10.8); Magnesium 1.4 mg/dL (1.6-2.6); Potassium 4.1 mEq/L (3.5-4.5)
[2017-06-21] MEDS: Insulin LISPRO 300 UNITS/3 ML VIAL SQ SCH ×4 (09:44→21:15)
[2017-06-21] MEDS: Diltiazem CD (24hr) 120 MG CAPSULE PO SCH (09:45)
[2017-06-21] MEDS: Furosemide 40 MG/4 ML VIAL IVP SCH ×3 (09:45→18:06)
--- NOTE | 2017-06-21 13:13 | Cardiology Progress Note ---
Date of Encounter: 06/21/17 Time of Encounter: 10:00 Assessment and Plan (1) CHF (congestive heart failure) Current Visit: Yes Status: Acute Per cardiology: -LVEF preserved on ECHO with mild dilatation/HK of the RV. Evidence of both left and right HF. Possible Cor pulmonale with severe COPD. -Previous systolic HF due to placement of ICD. -3+ bilateral pitting edema noted. Reports more shortness of breath today. -Pateint and daughter report patient has been urinating in bedpan, however little documentation of output noted. -No weight recorded for today. -On lasix 40mg TID. -CHF education reinforced with patient and daughter. -Recommend lawson catheter for accurate Intake and output measurements due to significant volume overload. -Strict i/os, fluid restriction, daily weights. -Will obtain records from outside hospital and her. Qualifiers: Congestive heart failure type: combined Congestive heart failure chronicity : acute Qualified Code(s): I50.41 - Acute combined systolic (congestive) and diastolic (congestive) heart failure (2) CAMILA (acute kidney injury) Current Visit: Yes Status: Acute Per cardiology: -CAMILA noted with creatinine today 2.09. -Consider nephrology consult. -Management per primary service. (3) Anemia Current Visit: Yes Status: Acute Per cardiology: -Hemoglobin today 7.4. -Hx of GI Bleed. -Recent 2 untis of PRBCs at outside hospital. -No plans for ischemic work up at this time due to inability to start ACS anticoagualt and antiplatelet meds. -Management per primary service. Qualifiers: Anemia type: unspecified type Qualified Code(s): D64.9 - Anemia, unspecified (4) Elevated troponin Current Visit: Yes Status: Acute Per cardiology: -Troponins 0.04, 0.04, 0.04. -Troponins flat and adynamic in the setting of CHF, CAMILA, anemia. -Denies chest pain. -ECG with paced rhythm, no acute ischemic changes noted. -Reports recent PRBC transusion. -TTE with LVEF preserved, no segmental wall motion abnormalities. -On statin. Not on asa due to anemia, recent PRBC transfusion. -Do not suspect NSTEMI, suspect demand ischemia related to above. NO cardiac rehab noted. (5) Atrial fibrillation Current Visit: Yes Status: Chronic Per cardiology: -Possible Chronic afib with dilated LA, not on AC likely due to previous hx of GI Bleed. -On cardizem. -Average HR previous 12 hours noted to be 85. -Pt poor historian will need to obtain records for review, records requested. Qualifiers: Atrial fibrillation type: chronic Qualified Code(s): I48.2 - Chronic atrial fibrillation Discussion w patient/family: The assessment and plan as outlined above was discussed with the patient and/or family members who expressed understanding and agreement. All questions were answered. Thank you for involving us in the care of your patient. Please call with any questions. Discussed and reviewed with . Subjective Principal diagnosis: CHF Interval history: Patient states she feels terrible today. States she is short of breath. States has increased peripheral edema. Objective Vital Signs, Last 4 Hours Temp Pulse Resp BP Pulse Ox 06/21/17 11:29 97.8 F 95 19 112/64 97 06/21/17 10:28 20 99 06/21/17 09:26 97.3 F L 86 19 121/74 95 General: Conversant, No Apparent Distress HEENT: Atraumatic, Normocephaly, Mucus Membranes Moist Neck: No JVD, Normal carotid pulses Cardiac: Normal S1 and S2, No Murmur Lungs: Other (Lung sounds with scattered rhonchi. ) Neuro: Alert and responsive, No focal deficits noted Abdomen: Soft, Non-Tender Skin: No rashes noted on visualized skin Musculoskeletal: No Chest Wall Tenderness Extremities: No Clubbing, No Cyanosis, Normal Pulses, Other (3+ bilateral lower extremity pitting edema noted. ) Results 06/21/17 05:14 06/21/17 05:14 Lab Results Active Medications Acetaminophen (Tylenol) 650 mg PO Q6HR PRN PRN Reason: Pain Stop: 12/20/17 05:51 Last Admin: 06/20/17 10:30 Dose: 650 mg Albuterol Sulfate (Proventil Neb) 2.5 mg IH Q2H PRN PRN Reason: Shortness Of Breath/Wheezing Stop: 12/19/17 21:10 Albuterol/Ipratropium (Duoneb) 3 ml IH QIDR ANNAMARIA Stop: 12/19/17 23:01 Last Admin: 06/21/17 10:26 Dose: 3 ml Allopurinol (Zyloprim) 100 mg PO DAILY ANNAMARIA Stop: 12/20/17 09:01 Last Admin: 06/21/17 09:45 Dose: 100 mg Atorvastatin Calcium (Lipitor) 40 mg PO HS ANNAMARIA Stop: 12/20/17 21:01 Last Admin: 06/20/17 20:32 Dose: 40 mg Chlordiazepoxide HCl (Librium) 10 mg PO DAILY ANNAMARIA Stop: 12/20/17 09:01 Last Admin: 06/20/17 10:23 Dose: 10 mg Citalopram Hydrobromide (Celexa) 10 mg PO DAILY [facility] Stop: 12/20/17 09:01 Dextrose/Water (Dextrose 50% (Syg)) 25 ml IVP AD PRN PRN Reason: Hypoglycemia Stop: 12/19/17 21:16 Diltiazem HCl (Cardizem Cd) 120 mg PO DAILY [facility] Stop: 12/20/17 09:01 Last Admin: 06/21/17 09:45 Dose: 120 mg Furosemide (Lasix) 40 mg IVP TIDDIURETIC ANNAMARIA Stop: 12/20/17 17:01 Last Admin: 06/21/17 11:53 Dose: 40 mg Glucagon (Glucagen) 1 mg IM ONCE PRN PRN Reason: Hypoglycemia Stop: 12/19/17 21:16 Glucose (Gluctose) 15 gm PO ONCE PRN PRN Reason: Hypoglycemia Stop: 12/19/17 21:16 Glucose (Gluctose) 30 gm PO ONCE PRN PRN Reason: Hypoglycemia Stop: 12/19/17 21:16 Heparin Sodium (Porcine) (Heparin) 5,000 unit SQ Q12HR ANNAMARIA Stop: 12/20/17 06:01 Last Admin: 06/21/17 06:14 Dose: 5,000 unit Dextrose (Dextrose 5%) 1,000 mls @ 100 mls/hr IVC .Q10H PRN PRN Reason: HYPOGLYCEMIA Stop: 12/19/17 21:16 Ceftriaxone Sodium 1,000 mg/ (Sterile Water) 10 mls @ 300 mls/hr IVP HS [facility] Stop: 12/19/17 22:01 Last Admin: 06/20/17 20:32 Dose: 300 mls/hr Insulin Human Lispro (Humalog) 0 units SQ HS ANNAMARIA PRN Reason: Protocol Stop: 12/20/17 21:01 Last Admin: 06/20/17 22:02 Dose: 2 units Insulin Human Lispro (Humalog) 0 units SQ TIDAC ANNAMARIA PRN Reason: Protocol Stop: 12/20/17 07:31 Last Admin: 06/21/17 11:53 Dose: 4 units Naloxone HCl (Narcan) 0.4 mg IVP Q2MIN PRN PRN Reason: Opioid Reversal Stop: 12/19/17 21:04 Ondansetron HCl (Zofran) 4 mg IVP Q8HR PRN PRN Reason: Nausea And Vomiting Stop: 12/19/17 21:04 Laboratory Tests 06/17/17 06/19/17 06/19/17 04:16 05:13 17:05 WBC Hgb Plt Count Creatinine 1.07 1.75 H D 1.92 H Troponin I 06/19/17 06/19/17 06/20/17 17:05 22:10 04:30 WBC Hgb Plt Count Creatinine Troponin I 0.04 H* 0.04 H* 0.04 H* 06/21/17 06/21/17 05:14 05:14 WBC 11.4 H Hgb 7.4 L Plt Count 134 L Creatinine 2.09 H Troponin I - Imaging and Cardiology Chest Xray: report reviewed Echo: report reviewed - EKG Interpretation EKG results cardiology: other (Telemetry reviewed with average HR previous 12 hours noted to be 85, paced rhythm.) - VTE Documentation of Mechanical Device: Intermittent pneumatic compression device Consult Discharge Plan - Plan Referrals: NONE,PCP [Primary Care Provider] -
--- NOTE | 2017-06-21 14:07 | Internal Med Progress Note ---
Date of Encounter: 06/21/17 Time of Encounter: 11:00 - Assessment and plan (1) Acute exacerbation of CHF (congestive heart failure) Current Visit: Yes Status: Acute Assessment and plan: Echocardiogram shows normal left ventricular ejection fraction however dilated RV with hypokinesis. There is a PFO atrial septal defect with bffx-rb-enemp shunt which could account for right ventricular failure. I discussed Case with cardiology. Continue increased dose of Lasix. We will place Burris for accurate output monitoring given worsening renal failure, heart failure and chronic respiratory failure, patient progressed into a critical condition requiring strict input and output monitoring and having incontinence. Qualifiers: Congestive heart failure type: systolic Qualified Code(s): I50.23 - Acute on chronic systolic (congestive) heart failure (2) Elevated troponin Current Visit: Yes Status: Acute Assessment and plan: Flat and adynamic troponin elevation likely secondary to CHF exacerbation. Follow-up with cardiology. (3) Anemia Current Visit: Yes Status: Acute Assessment and plan: Monitor hemoglobin and hematocrit. Qualifiers: Anemia type: unspecified type Qualified Code(s): D64.9 - Anemia, unspecified (4) Diabetes mellitus Current Visit: Yes Status: Acute Assessment and plan: Insulin sliding scale. Fingerstick Accu-Cheks 4 times daily. Diabetic diet. Qualifiers: Diabetes mellitus type: type 2 Diabetes mellitus complication status: without complication Diabetes mellitus keno terminal operator insulin use: with retirement use Qualified Code(s): E11.9 - Type 2 diabetes mellitus without complications ; Z79.4 - alf (current) use of insulin; Z79.4 - alf (current) use of insulin; Z79.4 - exterminator termite (current) use of insulin; Z79.4 - exterminator termite ( current) use of insulin (5) Guosn-no-khqbzpo kidney injury Current Visit: Yes Status: Acute Assessment and plan: Worsening creatinine today. Continue with Lasix. Check retroperitoneal ultrasound to rule out hydronephrosis. Monitor kidney function closely. Avoid nephrotoxins including nonsteroidal anti -inflammatory medication. Qualifiers: Acute renal failure type: unspecified Chronic kidney disease stage: stage 3 (moderate) Qualified Code(s): N17.9 - Acute kidney failure, unspecified; N18.3 - Chronic kidney disease, stage 3 (moderate); N18.3 - Chronic kidney disease, stage 3 (moderate) (6) DVT prophylaxis Current Visit: Yes Status: Acute Assessment and plan: Subcutaneous heparin. (7) COPD exacerbation Current Visit: Yes Status: Acute Assessment and plan: She does report shortness of breath and on auscultation she has prominent expiratory wheezes. She also reports productive cough. We will treat her with ceftriaxone, and IV steroids. Continue with inhaled ipratropium and albuterol. - Subjective Interval history: Patient reports moderate shortness of breath at rest, unchanged from yesterday, associated with productive cough and wheezing. She denies associated fevers and chills. Reports associated dry cough. She has had worsening lower extremity edema over the last 2 weeks. - Constitutional Vitals: Temp Pulse Resp BP Pulse Ox 97.8 F 95 19 112/64 97 06/21/17 11:29 06/21/17 11:29 06/21/17 11:29 06/21/17 11:29 06/21/17 11:29 General appearance: Present: cooperative, A&O X 1, A&O X 3 - Eye Eye exam: Present: PERRL, conjuntiva pink, sclera anicteric Pupils: Present: PERRL - Respiratory Respiratory exam: Present: CTAB, rales, rhonchi, wheezes. Absent: accessory muscle use - Cardiovascular Cardiovascular exam: Present: RRR, +S1, +S2. Absent: diastolic murmur, gallop, rubs, systolic murmur - GI/Abdominal GI/Abdominal exam: Present: normal bowel sounds, soft, no peritoneal signs. Absent: distended, tenderness - Extremities Exam Extremities exam: Present: pedal edema (3+ lower extremity pitting edema), warm , radial pulses palpable and symmetrical. Absent: calf tenderness, cyanotic - Neurological Exam Neurological exam: Present: CN II-XII intact, oriented X3, no focal deficits. Absent: pronater drift, facial droop, speech deficit - Skin Skin exam: Present: dry, intact Internal Medicine: Result - Labs CBC & Chem 7: 06/21/17 05:14 06/21/17 05:14 Labs: Short CBC 06/21/17 Range/Units 05:14 WBC 11.4 H (4.3-11.1) K/mcL Hgb 7.4 L (11.5-15.4) g/dL Hct 24.6 L (35.3-44.9) % Plt Count 134 L (140-400) K/mcL Neutrophils # 10.2 H (1.6-8.9) K/mcL BMP 06/21/17 05:14 Sodium 142 Potassium 4.1 Chloride 100 Carbon Dioxide 31 H BUN 68 H Creatinine 2.09 H Glucose 155 H Calcium 8.7 - VTE Documentation of Mechanical Device: Intermittent pneumatic compression device Consult Discharge Plan - Plan Referrals: NONE,PCP [Primary Care Provider] -
[2017-06-21] MEDS ORDERED: Magnesium Sulfate 1 GM in D5% in Water 100 ML IVPB ONE (15:00)
[2017-06-21] MEDS: Acetaminophen 325 MG TABLET PO PRN ×2 (15:25→22:22)
[2017-06-21] MEDS: methylPREDNISolone 125 MG/2 ML VIAL IVP SCH (18:06)
[2017-06-21] MEDS: cefTRIAXone 1,000 MG in Water for inj. (sterile) 10 ML IVP SCH (21:15)
[2017-06-22] MEDS: Ipratropium/Albuterol Neb 3 ML IH SCH ×7 (00:10→23:22)
--- NOTE | 2017-06-22 02:16 | Electrocardiograph Report ---
[address] [address] Test Date: 2017-06-19 Pat Name: Poonam Aguilar Department: 104 Room: 2A Gender: F [place] [employer]: [facility] : 1930 Requested By: Kvng Vincent Order Number: [id number] Reading MD: Khoi Maradiaga MD Measurements Intervals [place] Rate: 78 P: [place]: 0 QRS: 188 QRSD: 136 T: 47 QT: 375 QTc: 408 Interpretive Statements ELECTRONIC VENTRICULAR PACEMAKER Electronically Signed On 06-22-2017 2:14:39 EST by Khoi Maradiaga MD
[2017-06-22 05:14] LABS: Hematocrit 24.8 % (35.3-44.9); Hemoglobin 7.5 g/dL (11.5-15.4); Immature Granulocytes % 0.5 % (0-4); Lymphocytes # 0.3 K/mcL (0.6-4.6); Lymphocytes % 3.9 %; Mean Corpuscular HGB Conc 30.2 g/dL (31.6-35.5); Mean Corpuscular Hemoglobin 25.3 pg (28.0-33.3); Mean Corpuscular Volume 83.8 fL (83.0-100.0); Mean Platelet Volume 11.6 fL (9.4-12.4); Monocytes # 0.1 K/mcL (0.0-1.3); Monocytes % 1.5 %; Neutrophils # 7.5 K/mcL (1.6-8.9); Platelet Count 146 K/mcL (140-400); Red Blood Count 2.96 M/mcL (3.82-4.97); Red Cell Distribution Width 22.5 % (11.5-14.5); Segmented Neutrophils % 94.1 %
[2017-06-22 05:20] LABS: Calcium 8.7 mg/dL (8.6-10.8); Magnesium 1.9 mg/dL (1.6-2.6); Potassium 4.2 mEq/L (3.5-4.5)
[2017-06-22] MEDS: *HR* Heparin 5,000 UNIT/ML VIAL SQ SCH ×2 (06:31→17:04)
[2017-06-22] MEDS: methylPREDNISolone 125 MG/2 ML VIAL IVP SCH ×2 (06:31→17:05)
[2017-06-22] MEDS: Acetaminophen 325 MG TABLET PO PRN (08:23)
[2017-06-22] MEDS: Diltiazem CD (24hr) 120 MG CAPSULE PO SCH (08:24)
[2017-06-22] MEDS: Insulin LISPRO 300 UNITS/3 ML VIAL SQ SCH ×4 (08:24→21:28)
[2017-06-22] MEDS: Furosemide 40 MG/4 ML VIAL IVP SCH ×3 (08:24→17:04)
--- NOTE | 2017-06-22 10:13 | Cardiology Progress Note ---
Date of Encounter: 06/22/17 Time of Encounter: 08:00 Assessment and Plan (1) CHF (congestive heart failure) Current Visit: Yes Status: Acute Per cardiology: -LVEF preserved on ECHO with mild dilatation/HK of the RV. Evidence of both left and right HF. Possible Cor pulmonale with severe COPD. -Previous systolic HF due to placement of ICD. -2+ bilateral pitting edema noted. -Patient reports shortness of breath improved today. -Net negative 148ml, yesterday had a positive fluid balance. -No weight recorded for today. -On lasix 40mg TID. Creatinine improved today 1.92. -CHF education reinforced with patient. -Strict i/os, fluid restriction, daily weights. -Recommend continuing IV diuresis until evolemic. -Cardiology will sign off. 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 Qualifiers: Congestive heart failure type: combined Congestive heart failure chronicity : acute Qualified Code(s): I50.41 - Acute combined systolic (congestive) and diastolic (congestive) heart failure (2) CAMILA (acute kidney injury) Current Visit: Yes Status: Acute Per cardiology: -CAMILA noted with creatinine today 1.92, slightly improved from yesterday. -Consider nephrology consult. -Management per primary service. (3) Anemia Current Visit: Yes Status: Acute Per cardiology: -Hemoglobin today 7.5. -Hx of GI Bleed. -Recent 2 untis of PRBCs at outside hospital. -No plans for ischemic work up at this time due to inability to start ACS anticoagualt and antiplatelet meds. -Management per primary service. Qualifiers: Anemia type: unspecified type Qualified Code(s): D64.9 - Anemia, unspecified (4) Elevated troponin Current Visit: Yes Status: Acute Per cardiology: -Troponins 0.04, 0.04, 0.04. -Troponins flat and adynamic in the setting of CHF, CAMILA, anemia. -Denies chest pain. -ECG with paced rhythm, no acute ischemic changes noted. -Reports recent PRBC transusion. -TTE with LVEF preserved, no segmental wall motion abnormalities. -On statin. Not on asa due to anemia, recent PRBC transfusion. -Do not suspect NSTEMI, suspect demand ischemia related to above. NO cardiac rehab noted. (5) Atrial fibrillation Current Visit: Yes Status: Chronic Per cardiology: -Possible Chronic afib with dilated LA, not on AC likely due to previous hx of GI Bleed. -On cardizem. -Average HR previous 12 hours noted to be 90. Qualifiers: Atrial fibrillation type: chronic Qualified Code(s): I48.2 - Chronic atrial fibrillation Discussion w patient/family: The assessment and plan as outlined above was discussed with the patient who expressed understanding and agreement. All questions were answered. Thank you for involving us in the care of your patient. Please call with any questions. Discussed and reviewed with . Subjective Principal diagnosis: CHF Interval history: Patient states she feels better today. States breathing improved. Objective Vital Signs, Last 4 Hours Temp Pulse Resp BP Pulse Ox 06/22/17 07:18 97.6 F 79 16 146/75 99 General: Conversant, No Apparent Distress HEENT: Atraumatic, Normocephaly, Mucus Membranes Moist Neck: No JVD, Normal carotid pulses Cardiac: Reg Rate and Rhythm, Normal S1 and S2, No Murmur Lungs: Normal Breath Sounds, No Wheeze, Rales, Rhonchi Neuro: Alert and responsive, No focal deficits noted Abdomen: Soft, Non-Tender Skin: No rashes noted on visualized skin Musculoskeletal: No Chest Wall Tenderness Extremities: No Clubbing, No Cyanosis, Normal Pulses, Other (2+ bilateral lower extremity pitting edema. ) Results 06/22/17 04:45 06/22/17 04:45 Lab Results Active Medications Acetaminophen (Tylenol) 650 mg PO Q6HR PRN PRN Reason: Pain Stop: 12/20/17 05:51 Last Admin: 06/22/17 08:23 Dose: 650 mg Albuterol Sulfate (Proventil Neb) 2.5 mg IH Q2H PRN PRN Reason: Shortness Of Breath/Wheezing Stop: 12/19/17 21:10 Albuterol/Ipratropium (Duoneb) 3 ml IH [id number] ANNAMARIA Stop: 12/21/17 16:01 Last Admin: 06/22/17 07:46 Dose: 3 ml Allopurinol (Zyloprim) 100 mg PO DAILY ANNAMARIA Stop: 12/20/17 09:01 Last Admin: 06/22/17 08:24 Dose: 100 mg Atorvastatin Calcium (Lipitor) 40 mg PO HS ANNAMARIA Stop: 12/20/17 21:01 Last Admin: 06/21/17 21:15 Dose: 40 mg Chlordiazepoxide HCl (Librium) 10 mg PO DAILY ANNAMARIA Stop: 12/20/17 09:01 Last Admin: 06/20/17 10:23 Dose: 10 mg Citalopram Hydrobromide (Celexa) 10 mg PO DAILY ANNAMARIA Stop: 12/20/17 09:01 Dextrose/Water (Dextrose 50% (Syg)) 25 ml IVP AD PRN PRN Reason: Hypoglycemia Stop: 12/19/17 21:16 Diltiazem HCl (Cardizem Cd) 120 mg PO DAILY ANNAMARIA Stop: 12/20/17 09:01 Last Admin: 06/22/17 08:24 Dose: 120 mg Furosemide (Lasix) 40 mg IVP TIDDIURETIC ANNAMARIA Stop: 12/20/17 17:01 Last Admin: 06/22/17 08:24 Dose: 40 mg Glucagon (Glucagen) 1 mg IM ONCE PRN PRN Reason: Hypoglycemia Stop: 12/19/17 21:16 Glucose (Gluctose) 15 gm PO ONCE PRN PRN Reason: Hypoglycemia Stop: 12/19/17 21:16 Glucose (Gluctose) 30 gm PO ONCE PRN PRN Reason: Hypoglycemia Stop: 12/19/17 21:16 Heparin Sodium (Porcine) (Heparin) 5,000 unit SQ Q12HR ANNAMARIA Stop: 12/20/17 06:01 Last Admin: 06/22/17 06:31 Dose: 5,000 unit Dextrose (Dextrose 5%) 1,000 mls @ 100 mls/hr IVC .Q10H PRN PRN Reason: HYPOGLYCEMIA Stop: 12/19/17 21:16 Ceftriaxone Sodium 1,000 mg/ (Sterile Water) 10 mls @ 300 mls/hr IVP HS ANNAMARIA Stop: 12/19/17 22:01 Last Admin: 06/21/17 21:15 Dose: 300 mls/hr Insulin Human Lispro (Humalog) 0 units SQ HS ANNAMARIA PRN Reason: Protocol Stop: 12/20/17 21:01 Last Admin: 06/21/17 21:15 Dose: 3 units Insulin Human Lispro (Humalog) 0 units SQ TIDAC ANNAMARIA PRN Reason: Protocol Stop: 12/20/17 07:31 Last Admin: 06/22/17 08:24 Dose: 4 units Methylprednisolone (Solu-Medrol) 60 mg IVP Q12HR ANNAMARIA Stop: 12/21/17 18:01 Last Admin: 06/22/17 06:31 Dose: 60 mg Naloxone HCl (Narcan) 0.4 mg IVP Q2MIN PRN PRN Reason: Opioid Reversal Stop: 12/19/17 21:04 Ondansetron HCl (Zofran) 4 mg IVP Q8HR PRN PRN Reason: Nausea And Vomiting Stop: 12/19/17 21:04 Laboratory Tests 06/21/17 06/22/17 06/22/17 05:14 04:45 04:45 Hgb 7.5 L Creatinine 2.09 H 1.92 H - Imaging and Cardiology Chest Xray: report reviewed Echo: report reviewed - EKG Interpretation EKG results cardiology: other (Telemetry reviewed with average HR previous 12 hours noted to be 90, paced rhythm.) - VTE Documentation of Mechanical Device: Intermittent pneumatic compression device Consult Discharge Plan - Plan Referrals: NONE,PCP [Primary Care Provider] -
--- NOTE | 2017-06-22 17:31 | Internal Med Progress Note ---
Date of Encounter: 06/22/17 Time of Encounter: 11:00 - Assessment and plan (1) Acute exacerbation of CHF (congestive heart failure) Current Visit: Yes Status: Acute Assessment and plan: 06/22/2017: She shows a negative fluid balance with strict I's and O's and Lasix. Symptomatically slightly improved. Oxygenation is adequate. We will continue with diuresis and monitor kidney function closely. 06/21/2017: Echocardiogram shows normal left ventricular ejection fraction however dilated RV with hypokinesis. There is a PFO atrial septal defect with [id number] shunt which could account for right ventricular failure. I discussed Case with cardiology. Continue increased dose of Lasix. We will place Burris for accurate output monitoring given worsening renal failure, heart failure and chronic respiratory failure, patient progressed into a critical condition requiring strict input and output monitoring and having incontinence. Qualifiers: Congestive heart failure type: systolic Qualified Code(s): I50.23 - Acute on chronic systolic (congestive) heart failure (2) Elevated troponin Current Visit: Yes Status: Acute Assessment and plan: Flat and adynamic troponin elevation likely secondary to CHF exacerbation. Appreciate cardiology recommendations. (3) Anemia Current Visit: Yes Status: Acute Assessment and plan: MCV is within normal range. Likely secondary to chronic kidney disease. I will check iron panel. Given CHF exacerbation and symptomatic anemia with tachycardia and generalized fatigue I will transfuse 1 unit PRBC. Goal hemoglobin above 8. Qualifiers: Anemia type: due to chronic kidney disease Chronic kidney disease stage: stage 3 (moderate) Qualified Code(s): N18.3 - Chronic kidney disease, stage 3 (moderate); D63.1 - Anemia in chronic kidney disease; D63.1 - Anemia in chronic kidney disease (4) Diabetes mellitus Current Visit: Yes Status: Acute Assessment and plan: Insulin sliding scale. Fingerstick Accu-Cheks 4 times daily. Diabetic diet. Qualifiers: Diabetes mellitus type: type 2 Diabetes mellitus complication status: without complication Diabetes mellitus mcc insulin use: with mcc use Qualified Code(s): E11.9 - Type 2 diabetes mellitus without complications ; Z79.4 - nursing home (current) use of insulin; Z79.4 - nursing home (current) use of insulin; Z79.4 - nursing home (current) use of insulin; Z79.4 - nursing home ( current) use of insulin (5) [id number] kidney injury Current Visit: Yes Status: Acute Assessment and plan: Worsening creatinine today. Continue with Lasix. Follow-up retroperitoneal ultrasound to rule out hydronephrosis. Monitor kidney function closely. Avoid nephrotoxins including nonsteroidal anti -inflammatory medication. We will consult nephrology. Qualifiers: Acute renal failure type: unspecified Chronic kidney disease stage: stage 3 (moderate) Qualified Code(s): N17.9 - Acute kidney failure, unspecified; N18.3 - Chronic kidney disease, stage 3 (moderate); N18.3 - Chronic kidney disease, stage 3 (moderate) (6) DVT prophylaxis Current Visit: Yes Status: Acute Assessment and plan: Subcutaneous heparin. (7) COPD exacerbation Current Visit: Yes Status: Acute Assessment and plan: She does report shortness of breath and on auscultation she has prominent expiratory wheezes. She also reports productive cough. We will treat her with ceftriaxone, and IV steroids. Continue with inhaled ipratropium and albuterol. - Subjective Interval history: Patient reports generalized pain all over, described as aching and associated with shortness of breath, worse with movement. - Constitutional Vitals: Temp Pulse Resp BP Pulse Ox 97.7 F 92 15 131/73 96 06/22/17 16:31 06/22/17 16:31 06/22/17 16:31 06/22/17 16:31 06/22/17 16:31 General appearance: Present: cooperative, A&O X 1, A&O X 3 - Eye Eye exam: Present: PERRL, conjuntiva pink, sclera anicteric Pupils: Present: PERRL - Respiratory Respiratory exam: Present: rales, rhonchi, tachypnea. Absent: accessory muscle use, wheezes - Cardiovascular Cardiovascular exam: Present: RRR, +S1, +S2. Absent: diastolic murmur, gallop, rubs, systolic murmur - GI/Abdominal GI/Abdominal exam: Present: normal bowel sounds, soft, no peritoneal signs. Absent: distended, tenderness - Extremities Exam Extremities exam: Present: pedal edema (2+ lower extremity pitting edema), warm , radial pulses palpable and symmetrical. Absent: calf tenderness, cyanotic - Skin Skin exam: Present: dry, intact Internal Medicine: Result - Labs CBC & Chem 7: 06/22/17 04:45 06/22/17 04:45 Labs: Short CBC 06/22/17 Range/Units 04:45 WBC 7.9 (4.3-11.1) K/mcL Hgb 7.5 L (11.5-15.4) g/dL Hct 24.8 L (35.3-44.9) % Plt Count 146 (140-400) K/mcL Neutrophils # 7.5 (1.6-8.9) K/mcL BMP 06/22/17 04:45 Sodium 142 Potassium 4.2 Chloride 98 Carbon Dioxide 34 H BUN 75 H Creatinine 1.92 H Glucose 212 H Calcium 8.7 - Impressions Impressions Retroperitoneum Ultrasound 06/22/17 15:00 IMPRESSION: No evidence of hydronephrosis in either kidney. Small right renal cysts are somewhat suboptimally evaluated due to large body habitus. Recommend six-month follow-up sonography to confirm stability. Partially imaged ascites, of indeterminate etiology. Recommend CT scan of the abdomen to determine underlying etiology. Though suboptimally evaluated on this study, there is a lobulated contour of the liver which may represent underlying cirrhosis, also suboptimally evaluated on this study. D/ / 06/22/2017 16:49:28 Arnulfo Phillips MD / tapan Interpreting Provider: Arnulfo Phillips MD - VTE Documentation of Mechanical Device: Intermittent pneumatic compression device Consult Discharge Plan - Plan Referrals: NONE,PCP [Primary Care Provider] -
[2017-06-22] MEDS ORDERED: Acetaminophen 325 MG TABLET PO ONE (17:35)
[2017-06-22] MEDS ORDERED: 0.9 % Sodium Chloride 250 ML ONE (18:10)
[2017-06-22 19:15] LABS: Ferritin 107 ng/ml (5-204)
[2017-06-22 19:23] LABS: % Iron Saturation 4 % (15-50); Iron 17 mcg/dL (50-170); Transferrin 272 mg/dL (180-382)
[2017-06-22] MEDS: cefTRIAXone 1,000 MG in Water for inj. (sterile) 10 ML IVP SCH (21:25)
[2017-06-23] MEDS: Ipratropium/Albuterol Neb 3 ML IH SCH ×5 (03:44→20:27)
[2017-06-23 05:12] LABS: Basophils % 0.1 %; Lymphocytes % 3.9 %
[2017-06-23 05:14] LABS: Hematocrit 29.7 % (35.3-44.9); Immature Granulocytes % 0.7 % (0-4); Immature Platelets 6.8 % (1.1-6.1); Lymphocytes # 0.3 K/mcL (0.6-4.6); Mean Corpuscular HGB Conc 30.3 g/dL (31.6-35.5); Mean Corpuscular Hemoglobin 25.4 pg (28.0-33.3); Mean Corpuscular Volume 83.9 fL (83.0-100.0); Mean Platelet Volume 10.8 fL (9.4-12.4); Monocytes # 0.2 K/mcL (0.0-1.3); Monocytes % 2.4 %; Neutrophils # 7.9 K/mcL (1.6-8.9); Platelet Count 193 K/mcL (140-400); Red Blood Count 3.54 M/mcL (3.82-4.97); Segmented Neutrophils % 92.9 %
[2017-06-23] MEDS: methylPREDNISolone 125 MG/2 ML VIAL IVP SCH (05:16)
[2017-06-23] MEDS: *HR* Heparin 5,000 UNIT/ML VIAL SQ SCH ×2 (05:16→17:12)
[2017-06-23 05:38] LABS: Calcium 9.3 mg/dL (8.6-10.8); Magnesium 2.1 mg/dL (1.6-2.6)
[2017-06-23 05:39] LABS: Albumin 2.7 g/dL (3.5-5.0); Albumin/Globulin Ratio 0.8 (1.1-2.2); Bilirubin,Direct 0.3 mg/dL (0.0-0.5); Bilirubin,Indirect 0.1 mg/dL (0.0-1.2); Bilirubin,Total 0.4 mg/dL (0.2-1.2); Globulin 3.5 g/dL (2.4-3.5); Total Protein 6.2 g/dL (6.0-8.3)
[2017-06-23 05:48] LABS: Acanthocytes 1+ (Not Present); Hypochromasia Present (Not Present); Poikilocytosis 2+ (Not Present); Schistocytes 1+ (Not Present)
[2017-06-23 05:49] LABS: Anisocytosis 2+ (Not Present); Microcytosis Present (Not Present); Platelet Estimate Normal (Normal)
--- NOTE | 2017-06-23 07:56 | Nephrology Consult Note ---
Date of Encounter: 06/23/17 Time of Encounter: 07:54 Assessment and Plan (1) CAMILA (acute kidney injury) Current Visit: Yes Status: Acute The patient has a clinical picture of acute kidney injury this developed since early June. This is in the setting of what appears to be worsening right sided congestive heart failure. She also has a clinical picture of cirrhosis possibly related to chronic hepatic congestion. Her renal function is relatively stable. She appears to be tolerating the diuresis. We will attempt to get other previous creatinine values. She also needs urine analysis to see if she has significant proteinuria which could signify abetting nephropathy and also contributed to the swelling. I suspect currently that the swelling is related to both right-sided heart failure as well as cirrhosis. I will continue with the current diuretic regimen since it appears she is tolerating it. Given increase her Cardizem for better blood pressure control. We will monitor her renal function and do some other diagnostic studies. (2) Right heart failure Current Visit: Yes Status: Acute (3) Anemia Current Visit: Yes Status: Acute Qualifiers: Anemia type: other cause Other causes of anemia: chronic disease, other Qualified Code(s): D63.8 - Anemia in other chronic diseases classified elsewhere History of Present Illness - History of Present Illness This is an 86-year-old female [facility] with complaints of weakness shortness of breath and swelling. She also describes a dry cough. Patient was noted to have a serum creatinine around 1.9 m remained approximately this level since admission. Previous creatinine levels on June 15 for 1.32 and on June 17 1.07. Patient denies any previous history of renal disease other than urinary tract infections. Next Patient is a rather poor historian. Past medical history indicates a history of atrial fibrillation, systolic congestive heart failure with AICD placement, COPD, and diabetes. She also has been treated for anemia and recently transfused. Next Current evaluation includes a renal ultrasound that shows normal size kidneys and no hydronephrosis. Some right renal cysts were noted. CT scan of the abdomen shows a lobular liver contour suggestive of cirrhosis. Ascites is present. Right pleural effusion is noted. Also question of a left renal lesion. Echocardiogram shows a left ventricular ejection fraction 55-60% with mild pulmonary hypertension. Diastolic function is indeterminant. There is moderate tricuspid regurgitation. Next Patient states she continues to feel weak inexperience and shortness of breath and coughing. She denies any sputum production. She denies any chest pain. Past Med Surg Social Fam HX - Past Medical History Medical history: atrial fibrillation, CHF, COPD, diabetes, GERD, hyperlipidemia , myocardial infarction - Social History Smoking Status: Never smoker Smokeless Tobacco Status: No Alcohol use: none Drug use: none - Family History Father Hx Family Cancer: Yes Medications and Allergies Acetaminophen [Tylenol] 325 mg PO Q6HR PRN 06/19/17 [History] Allopurinol [Zyloprim 100 MG] 100 mg PO DAILY 06/19/17 [History] Atorvastatin [Lipitor] 40 mg PO HS 06/19/17 [History] Carvedilol 12.5 mg PO BID 06/19/17 [History] Chlordiazepoxide [Librium] 10 mg PO DAILY 06/19/17 [History] Citalopram [CeleXA] 10 mg PO DAILY 06/19/17 [History] Diltiazem CD (24hr) [Cardizem CD] 120 mg PO DAILY 06/19/17 [History] Furosemide [Lasix] 40 mg PO BID 06/19/17 [History] Insulin Glargine,Hum.rec.anlog [Lantus Solostar] 30 unit SQ HS 06/19/17 [History ] Lisinopril [Zestril] 5 mg PO DAILY 06/19/17 [History] Potassium Chloride [K-Tab ER] 20 meq PO DAILY 06/19/17 [History] 3 Allergy/AdvReac Type Severity Reaction Status Date / Time egg Allergy Hives Verified 06/19/17 18:29 morphine Allergy Hives Verified 06/19/17 18:29 nitrofurantoin Allergy Hives Verified 06/19/17 18:29 Sulfa (Sulfonamide Allergy Hives Verified 06/19/17 18:29 Antibiotics) Review of Systems Constitutional: as per HPI, weakness Eyes: bilateral: blurred vision (patient denies), diplopia (patient denies) Cardiovascular: dyspnea, dyspnea on exertion, edema, leg edema, no chest pain, no palpitations Respiratory: as per HPI, dyspnea, dyspnea on exertion Gastrointestinal: no abdominal pain, no change in bowel habits Musculoskeletal: no muscle weakness, no numbness Integumentary: no hirsutism, no striae Neurological: weakness Psychiatric: no depression, no difficulty concentrating Endocrine: as per HPI Hematologic/Lymphatic: no easy bruising, no lymphadenopathy Exam - Vital Signs Vital signs: Initial Vital Signs Temp Pulse Resp BP Pulse Ox 97.9 F 121 30 113/69 100 06/19/17 16:32 06/19/17 16:32 06/19/17 16:32 06/19/17 16:32 06/19/17 16:32 Vital Signs - Last 8 Hours Temp Pulse Resp BP Pulse Ox 06/23/17 07:17 97.8 F 86 16 163/90 96 06/23/17 04:30 97.7 F 90 16 150/89 96 06/23/17 03:44 18 95 06/23/17 01:41 97.9 F 86 16 148/89 96 Intake and Output 06/22/17 06/22/17 06/23/17 15:59 23:59 07:59 Intake Total 340 / 340 800 / 800 360 / 360 Output Total 900 / 900 750 / 750 900 / 900 Balance -560 / -560 50 / 50 -540 / -540 Intake: IV Fluids Rocephin 1,000 MG In Water for inj. (sterile) 10 ML @ 300 mls/ hr IVP HS ANNAMARIA Rx#:[id number] Oral 340 / 340 800 / 800 Blood Product 0 / 0 350 / 350 Rbcs Leuko Poor As-1 Unit 0 / 0 350 / 350 [id number] Output: Urine 700 / 700 750 / 750 900 / 900 Catheter 200 / 200 Urethral (Burris) 200 / 200 Other: Meal Breakfast Water/ice Percent of Meal Consumed 100% Weight 97.1 kg Blood Glucose* 327 291 234 Patient Weight 06/23/17 23:59 Weight 97.1 kg - General Appearance Exam: Patient is alert. She is in no acute distress. Blood pressure 163/90. Lungs demonstrate diminished breath sounds in the bases bilaterally. Heart regular rate and rhythm with a 2/6 soft ejection murmur. Abdomen is soft. There is some diffuse tenderness. There is no guarding or rigidity. Lower extremities show 3+ edema. A Burris catheter is in place. Results - Lab Results 06/23/17 04:08 06/23/17 04:08 Most recent lab results Calcium 9.3 mg/dL (8.6-10.8) 06/23/17 04:08 Magnesium 2.1 mg/dL (1.6-2.6) 06/23/17 04:08 Consult Discharge Plan - Plan Referrals: NONE,PCP [Primary Care Provider] -
[2017-06-23] MEDS: Insulin LISPRO 300 UNITS/3 ML VIAL SQ SCH ×4 (07:58→20:37)
[2017-06-23] MEDS: Furosemide 40 MG/4 ML VIAL IVP SCH ×3 (07:59→17:12)
[2017-06-23] MEDS: Diltiazem CD (24hr) 120 MG CAPSULE PO SCH (08:00)
[2017-06-23] MEDS ORDERED: Diltiazem CD (24hr) 120 MG CAPSULE PO SCH (08:03)
--- NOTE | 2017-06-23 08:27 | Internal Med Progress Note ---
Date of Encounter: 06/23/17 Time of Encounter: 08:23 - Assessment and plan (1) Acute exacerbation of CHF (congestive heart failure) Current Visit: Yes Status: Acute Assessment and plan: Acute diastolic CHF exacerbation, also related to PFO with left to right shunt/ right-sided heart failure, right-sided pleural effusion The patient has an AICD apparently from prior systolic CHF Consider thoracenteses, the patient would prefer to avoid it at this point as she is 86 years old Continue Lasix IV until euvolemic, strict I's and O's and daily weight 06/21/2017: Echocardiogram shows normal left ventricular ejection fraction however dilated RV with hypokinesis. There is a PFO atrial septal defect with [id number] shunt which could account for right ventricular failure. Qualifiers: Congestive heart failure type: systolic Qualified Code(s): I50.23 - Acute on chronic systolic (congestive) heart failure (2) Elevated troponin Current Visit: Yes Status: Acute Assessment and plan: Flat and adynamic troponin elevation likely secondary to CHF exacerbation/ demand ischemia Diltiazem was increased (3) Diabetes mellitus Current Visit: Yes Status: Acute Assessment and plan: Insulin sliding scale. Fingerstick Accu-Cheks 4 times daily. Diabetic diet. Qualifiers: Diabetes mellitus type: type 2 Diabetes mellitus complication status: without complication Diabetes mellitus termite exterminator helper insulin use: with snf use Qualified Code(s): E11.9 - Type 2 diabetes mellitus without complications ; Z79.4 - joint terminal attack controller (current) use of insulin; Z79.4 - joint terminal attack controller (current) use of insulin; Z79.4 - halfway (current) use of insulin; Z79.4 - halfway ( current) use of insulin (4) CAMILA (acute kidney injury) Current Visit: Yes Status: Acute Assessment and plan: Followed by Dr. Glover Urine studies pending (5) COPD exacerbation Current Visit: Yes Status: Acute Assessment and plan: Acute COPD exacerbation likely secondary to viral acute bronchitis Discontinue ceftriaxone ceftriaxone, decrease Solu-Medrol down to 40 mg twice a day IV. Continue with inhaled ipratropium and albuterol. (6) Right heart failure Current Visit: Yes Status: Acute - Subjective Interval history: Still feeling short of breath, having severe bilateral lower extremity edema, denies any phlegm production, no fevers, no chest pain, no abdominal pain or dysuria - Constitutional Vitals: Temp Pulse Resp BP Pulse Ox 97.8 F 86 16 163/90 96 06/23/17 07:17 06/23/17 07:17 06/23/17 08:03 06/23/17 07:17 06/23/17 08:03 General appearance: Present: cooperative, A&O X 3 - Head Head exam: Present: atraumatic, normocephalic - Eye Eye exam: Present: PERRL, conjuntiva pink, sclera anicteric Pupils: Present: PERRL - Neck Neck exam general surgery: Present: supple, trachea midline. Absent: lymphadenopathy - Respiratory Respiratory exam: Present: CTAB, wheezes. Absent: accessory muscle use, rales, rhonchi Additional comments: Blunted breath sounds in the right base, minimal diffuse wheezing/crackles - Cardiovascular Cardiovascular exam: Present: RRR, +S1, +S2. Absent: diastolic murmur, gallop, rubs, systolic murmur - GI/Abdominal GI/Abdominal exam: Present: distended (Ascites present), normal bowel sounds, soft, no peritoneal signs. Absent: tenderness - Extremities Exam Extremities exam: Present: pedal edema (Severe +3 pitting edema in both lower extremities), warm, radial pulses palpable and symmetrical. Absent: calf tenderness, cyanotic - Neurological Exam Neurological exam: Present: CN II-XII intact, oriented X3, no focal deficits. Absent: pronater drift, facial droop, speech deficit - Skin Skin exam: Present: dry, intact Internal Medicine: Result - Labs CBC & Chem 7: 06/23/17 04:08 06/23/17 04:08 Labs: Short CBC 06/23/17 Range/Units 04:08 WBC 8.5 (4.3-11.1) K/mcL Hgb 9.0 L D (11.5-15.4) g/dL Hct 29.7 L (35.3-44.9) % Plt Count 193 (140-400) K/mcL Neutrophils # 7.9 (1.6-8.9) K/mcL BMP 06/23/17 04:08 Sodium 140 Potassium 4.0 Chloride 98 Carbon Dioxide 30 H BUN 76 H Creatinine 1.91 H Glucose 236 H Calcium 9.3 Liver Function 06/23/17 Range/Units 04:08 Total Bilirubin 0.4 (0.2-1.2) mg/dL Direct Bilirubin 0.3 (0.0-0.5) mg/dL AST 32 (5-34) Units/L ALT 27 (0-55) Units/L Alkaline Phosphatase 81 (38-126) Units/L Albumin 2.7 L (3.5-5.0) g/dL - Impressions Impressions Retroperitoneum Ultrasound 06/22/17 15:00 IMPRESSION: No evidence of hydronephrosis in either kidney. Small right renal cysts are somewhat suboptimally evaluated due to large body habitus. Recommend six-month follow-up sonography to confirm stability. Partially imaged ascites, of indeterminate etiology. Recommend CT scan of the abdomen to determine underlying etiology. Though suboptimally evaluated on this study, there is a lobulated contour of the liver which may represent underlying cirrhosis, also suboptimally evaluated on this study. D/ / 06/22/2017 16:49:28 Arnulfo Phillips MD / teo Interpreting Provider: Arnulfo Phillips MD Abdomen/Pelvis CT 06/22/17 20:00 IMPRESSION: 1. Nodular morphology of the hepatic parenchyma, concerning for cirrhosis. 2. Moderate amount of ascites. Diffuse anasarca. 3. Moderate to large right pleural effusion. Airspace disease in the right lower lobe and to a lesser extent within the right upper lobe, compatible with atelectasis and/or pneumonia. 4. Moderately suspicious lesion extending from the posterior aspect of the left kidney measuring 1.5 cm. If clinically warranted, this could be further evaluated with dedicated renal CT or MRI. D/ / Montana Rice MD / Montana Rice MD Interpreting Provider: Montana Rice MD - VTE Documentation of Mechanical Device: Intermittent pneumatic compression device Consult Discharge Plan - Plan Referrals: NONE,PCP [Primary Care Provider] -
[2017-06-23 08:40] LABS: Albumin 2.7 g/dL (3.5-5.0); Albumin/Globulin Ratio 0.7 (1.1-2.2); Bilirubin,Total 0.4 mg/dL (0.2-1.2); Calcium 9.4 mg/dL (8.6-10.8); Globulin 3.8 g/dL (2.4-3.5); Phosphorous 4.7 mg/dL (2.3-4.7); Total Protein 6.5 g/dL (6.0-8.3)
[2017-06-23] MEDS ORDERED: Diltiazem CD (24hr) 120 MG CAPSULE PO ONE (10:25)
[2017-06-23] MEDS: Insulin DETEMIR 100 UNIT/ML X5UNITS SQ SCH (10:53)
[2017-06-23] MEDS: Acetaminophen 325 MG TABLET PO PRN (14:28)
[2017-06-23] MEDS: MethylPREDNISolone 40 MG/ML VIAL IVP SCH (17:13)
[2017-06-23 19:33] LABS: Creatinine,Urine 25 mg/dL; Microalbum/Creatinine Ratio,Ur 28 (0-30); Microalbumin,Urine 7 mg/L
[2017-06-24] MEDS: Ipratropium/Albuterol Neb 3 ML IH SCH ×6 (00:21→19:35)
[2017-06-24 04:16] LABS: Basophils % 0.1 %; Hematocrit 28.7 % (35.3-44.9); Hemoglobin 8.6 g/dL (11.5-15.4); Lymphocytes # 0.4 K/mcL (0.6-4.6); Lymphocytes % 3.8 %; Mean Corpuscular Hemoglobin 25.4 pg (28.0-33.3); Mean Corpuscular Volume 84.7 fL (83.0-100.0); Mean Platelet Volume 10.8 fL (9.4-12.4); Monocytes # 0.3 K/mcL (0.0-1.3); Monocytes % 2.6 %; Neutrophils # 8.8 K/mcL (1.6-8.9); Platelet Count 260 K/mcL (140-400); Red Blood Count 3.39 M/mcL (3.82-4.97); Red Cell Distribution Width 21.1 % (11.5-14.5); Segmented Neutrophils % 92.5 %
[2017-06-24 04:29] LABS: Magnesium 1.8 mg/dL (1.6-2.6); Potassium 3.8 mEq/L (3.5-4.5)
[2017-06-24] MEDS: MethylPREDNISolone 40 MG/ML VIAL IVP SCH ×2 (05:18→17:10)
[2017-06-24] MEDS: *HR* Heparin 5,000 UNIT/ML VIAL SQ SCH ×2 (05:18→17:10)
[2017-06-24] MEDS ORDERED: Ferumoxytol 510 MG in 0.9 % Sodium Chloride 100 ML IVPB ONE (08:09)
--- NOTE | 2017-06-24 08:09 | Nephrology Progress Note ---
Date of Encounter: 06/24/17 Time of Encounter: 08:07 - Assessment and Plan (1) CAMILA (acute kidney injury) Current Visit: Yes Status: Acute Patient has acute kidney injury in the setting of acute right-sided congestive heart failure with associated liver cirrhosis possibly related to chronic hepatic congestion. She has no significant proteinuria. Her renal function is mildly improved today compared to yesterday. I will continue with the diuresis. Her iron saturation is quite low so we will give her some parenteral iron. (2) Right heart failure Current Visit: Yes Status: Acute (3) Anemia Current Visit: Yes Status: Acute Qualifiers: Anemia type: other cause Other causes of anemia: chronic disease, other Qualified Code(s): D63.8 - Anemia in other chronic diseases classified elsewhere Subjective Principal diagnosis: CHF Interval history: The patient reports she is feeling better. Serum creatinine is improved from 1.90 down to 1.78. She does not have significant proteinuria. Iron saturation is quite low. Hemoglobin is relatively stable. Blood pressures ranging from 148/75-161/78. Objective - Vital Signs Vital signs: Vital Signs Temp Pulse Resp BP Pulse Ox 06/24/17 07:43 20 96 06/24/17 07:16 97.6 F 90 20 161/78 94 06/24/17 04:54 18 96 06/24/17 03:49 97.8 F 95 14 148/75 95 06/24/17 00:21 16 97 06/23/17 23:56 98 F 94 17 155/78 97 06/23/17 20:27 19 97 06/23/17 20:13 97.9 F 91 16 152/78 98 06/23/17 20:01 98 06/23/17 16:32 105 92 06/23/17 15:38 97.6 F 86 16 149/80 100 06/23/17 15:35 16 99 06/23/17 11:36 97.3 F L 91 16 171/84 99 06/23/17 11:30 16 96 Intake and Output 06/23/17 06/24/17 06/24/17 23:59 07:59 15:59 Other: Weight 97.4 kg Blood Glucose* 291 286 Patient Weight 06/24/17 23:59 Weight 97.4 kg - General Appearance Exam: Patient is alert and oriented. She is in no acute distress. Lungs symmetric breath sounds bilaterally. Heart irregular rate and rhythm consistent with atrial fibrillation. Abdomen is nontender. She has lower extremity edema with leg wraps in place. - Lab 06/24/17 03:46 06/24/17 03:46 Most recent lab results Calcium 9.0 mg/dL (8.6-10.8) 06/24/17 03:46 Phosphorus 4.7 mg/dL (2.3-4.7) 06/23/17 08:09 Magnesium 1.8 mg/dL (1.6-2.6) 06/24/17 03:46 Urine Creatinine 25 mg/dL 06/23/17 19:10 Urine Total Protein < 7 mg/dL (1-14) 06/23/17 19:10 - VTE Documentation of Mechanical Device: Intermittent pneumatic compression device Consult Discharge Plan - Plan Referrals: NONE,PCP [Primary Care Provider] -
[2017-06-24] MEDS: Furosemide 40 MG/4 ML VIAL IVP SCH ×3 (08:20→17:10)
[2017-06-24] MEDS: Diltiazem CD (24hr) 240 MG CAPSULE PO SCH (08:20)
[2017-06-24] MEDS: Insulin LISPRO 300 UNITS/3 ML VIAL SQ SCH ×5 (08:21→23:02)
[2017-06-24] MEDS: Insulin DETEMIR 100 UNIT/ML X5UNITS SQ SCH (08:35)
--- NOTE | 2017-06-24 09:00 | Internal Med Progress Note ---
Date of Encounter: 06/24/17 Time of Encounter: 08:58 - Assessment and plan (1) Acute exacerbation of CHF (congestive heart failure) Current Visit: Yes Status: Acute Assessment and plan: Acute diastolic CHF exacerbation, also related to PFO with left to right shunt/ right-sided heart failure, right-sided pleural effusion The patient has an AICD apparently from prior systolic CHF Consider thoracenteses, the patient would prefer to avoid it at this point as she is 86 years old Continue Lasix IV until euvolemic, strict I's and O's and daily weight 06/21/2017: Echocardiogram shows normal left ventricular ejection fraction however dilated RV with hypokinesis. There is a PFO atrial septal defect with [id number] shunt which could account for right ventricular failure. Qualifiers: Congestive heart failure type: systolic Qualified Code(s): I50.23 - Acute on chronic systolic (congestive) heart failure (2) Elevated troponin Current Visit: Yes Status: Acute Assessment and plan: Flat and adynamic troponin elevation likely secondary to CHF exacerbation/ demand ischemia Diltiazem was increased (3) Diabetes mellitus Current Visit: Yes Status: Acute Assessment and plan: Insulin sliding scale. Fingerstick Accu-Cheks 4 times daily. Diabetic diet. Qualifiers: Diabetes mellitus type: type 2 Diabetes mellitus complication status: without complication Diabetes mellitus emg technician insulin use: with fci use Qualified Code(s): E11.9 - Type 2 diabetes mellitus without complications ; Z79.4 - tunnel mucker (current) use of insulin; Z79.4 - tunnel mucker (current) use of insulin; Z79.4 - prison (current) use of insulin; Z79.4 - prison ( current) use of insulin (4) CAMILA (acute kidney injury) Current Visit: Yes Status: Acute Assessment and plan: improving Followed by Dr. Glover (5) COPD exacerbation Current Visit: Yes Status: Acute Assessment and plan: Acute COPD exacerbation likely secondary to viral acute bronchitis Discontinued ceftriaxone , decreased Solu-Medrol down to 40 mg twice a day IV. Continue with inhaled ipratropium and albuterol. (6) Right heart failure Current Visit: Yes Status: Acute - Subjective Interval history: Feeling short of breath, having less severe bilateral lower extremity edema, denies any phlegm production, no fevers, no chest pain, no abdominal pain or dysuria - Constitutional Vitals: Temp Pulse Resp BP Pulse Ox 97.6 F 90 20 161/78 96 06/24/17 07:16 06/24/17 07:16 06/24/17 07:43 06/24/17 07:16 06/24/17 07:43 General appearance: Present: cooperative, A&O X 3 Exam: - Head Head exam: Present: atraumatic, normocephalic - Eye Eye exam: Present: PERRL, conjuntiva pink, sclera anicteric Pupils: Present: PERRL - Neck Neck exam general surgery: Present: supple, trachea midline. Absent: lymphadenopathy - Respiratory Respiratory exam: Present: CTAB, wheezes. Absent: accessory muscle use, rales, rhonchi Additional comments: Blunted breath sounds in the right base, minimal diffuse wheezing/crackles - Cardiovascular Cardiovascular exam: Present: RRR, +S1, +S2. Absent: diastolic murmur, gallop, rubs, systolic murmur - GI/Abdominal GI/Abdominal exam: Present: distended (Ascites present), normal bowel sounds, soft, no peritoneal signs. Absent: tenderness - Extremities Exam Extremities exam: Present: pedal edema (Severe +3 pitting edema in both lower extremities improving), warm, radial pulses palpable and symmetrical. Absent: calf tenderness, cyanotic - Neurological Exam Neurological exam: Present: CN II-XII intact, oriented X3, no focal deficits. Absent: pronater drift, facial droop, speech deficit - Skin Skin exam: Present: dry, intact Internal Medicine: Result - Labs CBC & Chem 7: 06/24/17 03:46 06/24/17 03:46 Labs: Short CBC 06/24/17 Range/Units 03:46 WBC 9.5 (4.3-11.1) K/mcL Hgb 8.6 L (11.5-15.4) g/dL Hct 28.7 L (35.3-44.9) % Plt Count 260 (140-400) K/mcL Neutrophils # 8.8 (1.6-8.9) K/mcL BMP 06/24/17 03:46 Sodium 143 Potassium 3.8 Chloride 99 Carbon Dioxide 32 H BUN 78 H Creatinine 1.78 H Glucose 255 H Calcium 9.0 - VTE Documentation of Mechanical Device: Intermittent pneumatic compression device Consult Discharge Plan - Plan Referrals: NONE,PCP [Primary Care Provider] -
[2017-06-24] MEDS ORDERED: Insulin DETEMIR 100 UNIT/ML X5UNITS SQ ONE (12:58)
[2017-06-24] MEDS: Acetaminophen 325 MG TABLET PO PRN ×2 (17:23→23:00)
[2017-06-25] MEDS: Ipratropium/Albuterol Neb 3 ML IH SCH ×7 (00:38→23:31)
[2017-06-25] MEDS: *HR* Heparin 5,000 UNIT/ML VIAL SQ SCH ×2 (05:57→17:12)
[2017-06-25] MEDS: MethylPREDNISolone 40 MG/ML VIAL IVP SCH (05:58)
[2017-06-25 06:12] LABS: Basophils % 0.2 %; Hematocrit 29.9 % (35.3-44.9); Hemoglobin 8.8 g/dL (11.5-15.4); Immature Granulocytes % 1.9 % (0-4); Lymphocytes # 0.4 K/mcL (0.6-4.6); Mean Corpuscular HGB Conc 29.4 g/dL (31.6-35.5); Mean Corpuscular Hemoglobin 25.3 pg (28.0-33.3); Mean Corpuscular Volume 85.9 fL (83.0-100.0); Mean Platelet Volume 10.9 fL (9.4-12.4); Monocytes # 0.4 K/mcL (0.0-1.3); Monocytes % 3.7 %; Neutrophils # 9.7 K/mcL (1.6-8.9); Platelet Count 332 K/mcL (140-400); Red Blood Count 3.48 M/mcL (3.82-4.97); Red Cell Distribution Width 21.1 % (11.5-14.5); Segmented Neutrophils % 90.2 %
[2017-06-25 06:18] LABS: Calcium 9.4 mg/dL (8.6-10.8)
[2017-06-25 06:19] LABS: Potassium 3.9 mEq/L (3.5-4.5)
[2017-06-25 06:56] LABS: Platelet Estimate Normal (Normal); Toxic Granulation Present (Not Present)
[2017-06-25] MEDS: Furosemide 40 MG/4 ML VIAL IVP SCH ×3 (08:12→17:09)
[2017-06-25] MEDS: Insulin LISPRO 300 UNITS/3 ML VIAL SQ SCH ×7 (08:13→21:14)
[2017-06-25] MEDS: Acetaminophen 325 MG TABLET PO PRN ×3 (08:13→21:13)
[2017-06-25] MEDS: Diltiazem CD (24hr) 240 MG CAPSULE PO SCH (08:14)
[2017-06-25] MEDS: Insulin DETEMIR 100 UNIT/ML X5UNITS SQ SCH (08:14)
--- NOTE | 2017-06-25 09:03 | Internal Med Progress Note ---
Date of Encounter: 06/25/17 Time of Encounter: 09:01 - Assessment and plan (1) Acute exacerbation of CHF (congestive heart failure) Current Visit: Yes Status: Acute Assessment and plan: Acute diastolic CHF exacerbation, also related to PFO with left to right shunt/ right-sided heart failure, right-sided pleural effusion The patient has an AICD apparently from prior systolic CHF creatinine improving Consider thoracenteses, the patient would prefer to avoid it at this point as she is 86 years old Continue Lasix IV until euvolemic, strict I's and O's and daily weight 06/21/2017: Echocardiogram shows normal left ventricular ejection fraction however dilated RV with hypokinesis. There is a PFO atrial septal defect with [id number] shunt which could account for right ventricular failure. Qualifiers: Congestive heart failure type: systolic Qualified Code(s): I50.23 - Acute on chronic systolic (congestive) heart failure (2) Elevated troponin Current Visit: Yes Status: Acute Assessment and plan: Flat and adynamic troponin elevation likely secondary to CHF exacerbation/ demand ischemia Diltiazem was increased (3) Diabetes mellitus Current Visit: Yes Status: Acute Assessment and plan: Insulin sliding scale. Fingerstick Accu-Cheks 4 times daily. Diabetic diet. Qualifiers: Diabetes mellitus type: type 2 Diabetes mellitus complication status: without complication Diabetes mellitus jail insulin use: with terminal gauger supervisor use Qualified Code(s): E11.9 - Type 2 diabetes mellitus without complications ; Z79.4 - intermediate teacher (current) use of insulin; Z79.4 - nursing home (current) use of insulin; Z79.4 - intermediate teacher (current) use of insulin; Z79.4 - nursing home ( current) use of insulin (4) CAMILA (acute kidney injury) Current Visit: Yes Status: Acute Assessment and plan: improving Followed by Dr. Glover (5) COPD exacerbation Current Visit: Yes Status: Acute Assessment and plan: Acute COPD exacerbation likely secondary to viral acute bronchitis Discontinued ceftriaxone , stop Solu-Medrol , start prednisone and taper. Continue with inhaled ipratropium and albuterol. (6) Right heart failure Current Visit: Yes Status: Acute - Subjective Interval history: Feeling tired but less short of breath, having less severe bilateral lower extremity edema, denies any phlegm production, no fevers, no chest pain, no abdominal pain or dysuria - Constitutional Vitals: Temp Pulse Resp BP Pulse Ox 98.0 F 98 15 152/66 96 06/25/17 07:11 06/25/17 07:11 06/25/17 07:41 06/25/17 07:11 06/25/17 07:41 General appearance: Present: cooperative, A&O X 3 Exam: - Head Head exam: Present: atraumatic, normocephalic - Eye Eye exam: Present: PERRL, conjuntiva pink, sclera anicteric Pupils: Present: PERRL - Neck Neck exam general surgery: Present: supple, trachea midline. Absent: lymphadenopathy - Respiratory Respiratory exam: Present: CTAB, wheezes. Absent: accessory muscle use, rales, rhonchi Additional comments: Blunted breath sounds in the right base, minimal diffuse wheezing/crackles - Cardiovascular Cardiovascular exam: Present: RRR, +S1, +S2. Absent: diastolic murmur, gallop, rubs, systolic murmur - GI/Abdominal GI/Abdominal exam: Present: distended (Ascites present), normal bowel sounds, soft, no peritoneal signs. Absent: tenderness - Extremities Exam Extremities exam: Present: pedal edema (Severe +3 pitting edema in both lower extremities improving), warm, radial pulses palpable and symmetrical. Absent: calf tenderness, cyanotic - Neurological Exam Neurological exam: Present: CN II-XII intact, oriented X3, no focal deficits. Absent: pronater drift, facial droop, speech deficit - Skin Skin exam: Present: dry, intact Internal Medicine: Result - Labs CBC & Chem 7: 06/25/17 05:41 06/25/17 05:41 Labs: Short CBC 06/25/17 Range/Units 05:41 WBC 10.8 (4.3-11.1) K/mcL Hgb 8.8 L (11.5-15.4) g/dL Hct 29.9 L (35.3-44.9) % Plt Count 332 (140-400) K/mcL Neutrophils # 9.7 H (1.6-8.9) K/mcL BMP 06/25/17 05:41 Sodium 146 H Potassium 3.9 Chloride 101 Carbon Dioxide 34 H BUN 79 H Creatinine 1.53 H Glucose 232 H Calcium 9.4 - VTE Documentation of Mechanical Device: Intermittent pneumatic compression device Consult Discharge Plan - Plan Referrals: NONE,PCP [Primary Care Provider] - (Patient will follow up with ECF PCP)
--- NOTE | 2017-06-25 09:05 | Nephrology Progress Note ---
Date of Encounter: 06/25/17 Time of Encounter: 08:45 Subjective Principal diagnosis: CHF Interval history: A/P- CAMILA in setting of acute right sided CHF with associated liver cirrhosis most likely from chronic hepatic congestion. Renal fct improving. Creat 1.53. Documented urine output 2200cc. SBP 152, AR 98-104. Will increase Cardizem. Continue to monitor, avoid nephrotoxins. HOB elevated, eating breakfast. Admits her usual SOB. Noeted to be somewhat tachypneic. Objective - Vital Signs Vital signs: Vital Signs Temp Pulse Resp BP Pulse Ox 06/25/17 07:41 15 96 06/25/17 07:11 98.0 F 98 15 152/66 96 06/25/17 04:56 98 F 102 15 151/79 95 06/25/17 03:47 15 96 06/25/17 00:38 17 94 06/25/17 00:35 97.7 F 106 15 154/82 95 06/24/17 21:57 98.6 F 112 15 150/73 95 06/24/17 19:35 21 95 06/24/17 16:20 20 95 06/24/17 16:01 98.3 F 100 20 158/89 95 06/24/17 11:21 20 92 06/24/17 11:11 98.5 F 91 20 128/62 92 Intake and Output 06/24/17 06/25/17 06/25/17 23:59 07:59 15:59 Intake Total 540 / 540 Output Total 1150 / 1150 600 / 600 Balance -610 / -610 -600 / -600 Intake: Oral 540 / 540 Output: Catheter 1150 / 1150 600 / 600 Other: Meal Dinner Percent of Meal Consumed 60% Weight 98 kg Blood Glucose* 290 232 Patient Weight 06/25/17 23:59 Weight 98 kg - General Appearance General appearance: Present: well-developed, well-nourished, appears started age EENT: Present: mucous membranes moist Neck: Present: no JVD Respiratory: Present: wheezing Cardiology: Present: edema, regular rate, regular rhythm Additional Comments: 1+ LE/pedal Gastrointestinal: Present: normoactive bowel sounds, no tenderness Integumentary: Present: warm and dry Psychiatric: Present: mood/affect appropriate, cooperative - Lab 06/25/17 05:41 06/25/17 05:41 Most recent lab results Calcium 9.4 mg/dL (8.6-10.8) 06/25/17 05:41 Phosphorus 4.7 mg/dL (2.3-4.7) 06/23/17 08:09 Magnesium 2.0 mg/dL (1.6-2.6) 06/25/17 05:41 Urine Creatinine 25 mg/dL 06/23/17 19:10 Urine Total Protein < 7 mg/dL (1-14) 06/23/17 19:10 - VTE Documentation of Mechanical Device: Intermittent pneumatic compression device Consult Discharge Plan - Plan Referrals: NONE,PCP [Primary Care Provider] - (Patient will follow up with ECF PCP)
[2017-06-25] MEDS ORDERED: Diltiazem CD (24hr) 180 MG CAPSULE PO SCH (09:09)
[2017-06-26] MEDS: Acetaminophen 325 MG TABLET PO PRN ×2 (02:01→09:28)
[2017-06-26 03:26] LABS: Alpha 2 Globulin (PEP) 1.18 g/dL (0.48-1.05); Beta Globulin (PEP) 1.02 g/dL (0.48-1.10)
[2017-06-26] MEDS: Ipratropium/Albuterol Neb 3 ML IH SCH ×3 (03:52→11:02)
[2017-06-26] MEDS: *HR* Heparin 5,000 UNIT/ML VIAL SQ SCH (05:58)
[2017-06-26 06:02] LABS: Calcium 9.5 mg/dL (8.6-10.8); Potassium 3.4 mEq/L (3.5-4.5)
[2017-06-26 07:34] VITALS: BP 147/78
[2017-06-26 07:55] LABS: Immunoglobulin A 257 mg/dL (68-408); Immunoglobulin G 522 mg/dL (768-1632); Immunoglobulin M 65 mg/dL (35-263)
[2017-06-26 07:56] LABS: IFE Reflexed IFE Done
[2017-06-26] MEDS ORDERED: predniSONE 20 MG TABLET PO SCH (09:00)
--- NOTE | 2017-06-26 09:18 | Discharge Summary ---
Date of Encounter: 06/26/17 Time of Encounter: 09:14 - Discharge Diagnosis (1) Acute exacerbation of CHF (congestive heart failure) Priority: Primary Status: Acute Comments: Acute diastolic CHF exacerbation, also related to PFO with left to right shunt/ right-sided heart failure, right-sided pleural effusion The patient has an AICD apparently from prior systolic CHF Possible acute COPD exacerbation due to acute viral bronchitis Qualifiers: Congestive heart failure type: systolic Qualified Code(s): I50.23 - Acute on chronic systolic (congestive) heart failure (2) Elevated troponin Priority: Secondary Status: Acute (3) Diabetes mellitus Priority: Secondary Status: Acute Qualifiers: Diabetes mellitus type: type 2 Diabetes mellitus complication status: without complication Diabetes mellitus lobsterman insulin use: with lobsterman use Qualified Code(s): E11.9 - Type 2 diabetes mellitus without complications ; Z79.4 - long term care pharmacist (current) use of insulin; Z79.4 - custodial (current) use of insulin; Z79.4 - custodial (current) use of insulin; Z79.4 - custodial ( current) use of insulin (4) CAMILA (acute kidney injury) Priority: Primary Status: Acute Comments: Acute chronic renal failure, chronic kidney disease of stage III (5) COPD exacerbation Priority: Secondary Status: Acute (6) Right heart failure Priority: Secondary Status: Acute - Discharge Medications Prescriptions: Furosemide [Lasix] 60 mg PO BID #60 tablet Omeprazole Magnesium 40 mg PO DAILY #30 capsule.dr Potassium Chloride [K-Tab ER] 20 meq PO DAILY #30 tablet.er predniSONE [PredniSONE] 10 mg PO DAILY 20 Days tablet Home Medications: Acetaminophen [Tylenol] 325 mg PO Q6HR PRN 06/19/17 [History] Allopurinol [Zyloprim 100 MG] 100 mg PO DAILY 06/19/17 [History] Atorvastatin [Lipitor] 40 mg PO HS 06/19/17 [History] Carvedilol 12.5 mg PO BID 06/19/17 [History] Chlordiazepoxide [Librium] 10 mg PO DAILY 06/19/17 [History] Citalopram [CeleXA] 10 mg PO DAILY 06/19/17 [History] Diltiazem CD (24hr) [Cardizem CD] 120 mg PO DAILY 06/19/17 [History] Insulin Glargine,Hum.rec.anlog [Lantus Solostar] 30 unit SQ HS 06/19/17 [History ] Lisinopril [Zestril] 5 mg PO DAILY 06/19/17 [History] Furosemide [Lasix] 60 mg PO BID #60 tablet 06/26/17 [Rx] Omeprazole Magnesium 40 mg PO DAILY #30 capsule. 06/26/17 [Rx] Potassium Chloride [K-Tab ER] 20 meq PO DAILY #30 tablet.er 06/26/17 [Rx] predniSONE [PredniSONE] 10 mg PO DAILY 20 Days tablet 06/26/17 [Rx] Allergies/Adverse Reactions: 3 Allergy/AdvReac Type Severity Reaction Status Date / Time egg Allergy Hives Verified 06/19/17 18:29 morphine Allergy Hives Verified 06/19/17 18:29 nitrofurantoin Allergy Hives Verified 06/19/17 18:29 Sulfa (Sulfonamide Allergy Hives Verified 06/19/17 18:29 Antibiotics) Date of admission: 06/19/17 21:04 Primary care physician: PCP NONE Consults: 06/19/17 23:21 Consult to Associate Professor Of Geography [CONS] Routine Reason for SW Consult: discharge planning 06/20/17 17:00 Consult to Cardiology [CONS] Routine Comment: Consulting Provider: Cardiology Mya Reason for Consult: CHF, PFO, right ventricular failure Call Completed: No 06/22/17 14:56 Consult to Nephrology [CONS] Routine Consulting Provider: [facility] Reason for Consult: CAMILA on CKD Call Completed: Yes 06/22/17 14:58 Consult to Occupational Therapy [CONS] Routine Comment: Evaluate, develop and implement POC Reason for Consult: DR. Swan Consult to Physical Therapy [CONS] Routine Comment: Evaluate, develop and implement POC Reason for Consult: Dr. Swan 06/23/17 07:54 Consult to Respiratory Therapy [CONS] Routine Reason for Consult: start pt on acapella Call Completed: Yes - Patient Status Disposition: Home Health Service Condition: Fair Overall status at discharge: patient is progressing back to baseline - Discharge Instructions Follow Up With: NONE,PCP [Primary Care Provider] - (Patient will follow up with [facility] PCP) Additional Instructions: Follow-up with primary care physician. Increase Lasix dose to 60 mg twice daily , continue potassium. Prednisone taper:40 mg daily for 5 days, 30 mg for 5 days , 20 mg for 5 days, 10 mg for 5 days, continue physical therapy as outpatient. Fall precautions - Diet and Activity Activity: wear oxygen at all times Diet: low fat, low cholesterol Hospital course: Ms. Aguilar is a 86 year old female past medical history of systolic CHF, PFO with left to right shunt/right-sided heart failure, pacemaker AICD, atrial fibrillation not on anticoagulation, hypertension, COPD oxygen dependent, diabetes insulin-dependent. The patient was a resident at [facility]. According to nursing staff the patient experienced increasing shortness of breath and sputum production 2 days prior to admission, increase in lower extremity edema mild abdominal discomfort. There were not chest pain, fevers or chills, no melena hematochezia or hematemesis. Apparently she had a recent hospitalization at outlying facility-[facility] -where she was treated for exacerbation of CHF and GI bleed. She apparently received 2 units of PRBCs and that the GI bleed without known source. She presented to the ER with the above complaints. Work was obtained which did reveal some renal insufficiency as well as an elevated troponin of 0.04 and BNP of 812. Her hemoglobin was 7.6. Hemoccult was negative Chest x-ray did reveal pulmonary edema and a moderate layering right pleural effusion. Patient was given IV Lasix and placed on BiPAP Nephrology was consulted, creatinine increased up to 2.09 and improved on diureses down to 1.47. Patient received 40 mg of Lasix 3 times a day IV. Is a stable to be discharged, she has reported been recommended to go to a rehabilitation facility by our physical therapy team, family prefers to take her home on home health and rejected the idea of returning to a assisted facility. Risks were explained - Time Spent with Patient Total time spent providing and/or coordinating discharge services: Greater than 30 minutes (40 min) - Constitutional Vitals: Temp Pulse Resp BP Pulse Ox 97.6 F 95 18 147/78 98 06/26/17 07:33 06/26/17 07:33 06/26/17 07:37 06/26/17 07:33 06/26/17 07:37 General appearance: Present: cooperative, A&O X 3 Exam: - Head Head exam: Present: atraumatic, normocephalic - Eye Eye exam: Present: PERRL, conjuntiva pink, sclera anicteric Pupils: Present: PERRL - Neck Neck exam general surgery: Present: supple, trachea midline. Absent: lymphadenopathy - Respiratory Respiratory exam: Present: CTAB, wheezes. Absent: accessory muscle use, rales, rhonchi Additional comments: Blunted breath sounds in the right base, minimal diffuse wheezing/crackles - Cardiovascular Cardiovascular exam: Present: RRR, +S1, +S2. Absent: diastolic murmur, gallop, rubs, systolic murmur - GI/Abdominal GI/Abdominal exam: Present: distended (Ascites present), normal bowel sounds, soft, no peritoneal signs. Absent: tenderness - Extremities Exam Extremities exam: Present: pedal edema (Severe +3 pitting edema in both lower extremities improving), warm, radial pulses palpable and symmetrical. Absent: calf tenderness, cyanotic - Neurological Exam Neurological exam: Present: CN II-XII intact, oriented X3, no focal deficits. Absent: pronater drift, facial droop, speech deficit - Skin Skin exam: Present: dry, intact - VTE Documentation of Mechanical Device: Intermittent pneumatic compression device
[2017-06-26] MEDS: Furosemide 40 MG/4 ML VIAL IVP SCH (09:27)
[2017-06-26] MEDS: Insulin LISPRO 300 UNITS/3 ML VIAL SQ SCH ×4 (09:28→11:57)
--- NOTE | 2017-06-26 09:30 | Physician Discharge Referral ---
Home Health/Hosp Referral Info Transfer to: Home Health Provider in Charge Post Discharge: PCP - Diagnosis (1) Acute exacerbation of CHF (congestive heart failure) Status: Acute (2) Elevated troponin Status: Acute (3) Diabetes mellitus Status: Acute (4) CAMILA (acute kidney injury) Status: Acute (5) COPD exacerbation Status: Acute (6) Right heart failure Status: Acute - Respiratory Orders Smoking Cessation: Smoking cessation has been advised. For more information, call the [place] Tobacco Quit Line at 0-558-MRRQ-NOW. - Diet/Nutrition Diet/Nutrition Orders: No Added Salt (MILLICENT) - Services Needed Following services are medically necessary services: Nursing, Home Health Aide, Physical Therapy, Occupational Therapy Other Treatments: Follow-up with primary care physician. Increase Lasix dose to 60 mg twice daily , continue potassium. Prednisone taper:40 mg daily for 5 days, 30 mg for 5 days , 20 mg for 5 days, 10 mg for 5 days, continue physical therapy as outpatient. Fall precautions - Transfer Medications Prescriptions: Furosemide [Lasix] 60 mg PO BID #60 tablet Omeprazole Magnesium 40 mg PO DAILY #30 capsule. Potassium Chloride [K-Tab ER] 20 meq PO DAILY #30 tablet.er predniSONE [PredniSONE] 10 mg PO DAILY 20 Days tablet Home Medications: Acetaminophen [Tylenol] 325 mg PO Q6HR PRN 06/19/17 [History] Allopurinol [Zyloprim 100 MG] 100 mg PO DAILY 06/19/17 [History] Atorvastatin [Lipitor] 40 mg PO HS 06/19/17 [History] Carvedilol 12.5 mg PO BID 06/19/17 [History] Chlordiazepoxide [Librium] 10 mg PO DAILY 06/19/17 [History] Citalopram [CeleXA] 10 mg PO DAILY 06/19/17 [History] Diltiazem CD (24hr) [Cardizem CD] 120 mg PO DAILY 06/19/17 [History] Insulin Glargine,Hum.rec.anlog [Lantus Solostar] 30 unit SQ HS 06/19/17 [History ] Lisinopril [Zestril] 5 mg PO DAILY 06/19/17 [History] Furosemide [Lasix] 60 mg PO BID #60 tablet 06/26/17 [Rx] Omeprazole Magnesium 40 mg PO DAILY #30 capsule. 06/26/17 [Rx] Potassium Chloride [K-Tab ER] 20 meq PO DAILY #30 tablet.er 06/26/17 [Rx] predniSONE [PredniSONE] 10 mg PO DAILY 20 Days tablet 06/26/17 [Rx] Allergies/Adverse Reactions: 3 Allergy/AdvReac Type Severity Reaction Status Date / Time egg Allergy Hives Verified 06/19/17 18:29 morphine Allergy Hives Verified 06/19/17 18:29 nitrofurantoin Allergy Hives Verified 06/19/17 18:29 Sulfa (Sulfonamide Allergy Hives Verified 06/19/17 18:29 Antibiotics) Certification: Further, I certify that my clinical findings support that this patient is homebound (i.e. absences from home require considerable and taxing effort and are for medical reasons or episcopalian services or infrequently or short duration when for other reasons) because: Homebound Reason: Patient requires assistance of a person or device to safely leave home Attestation: My signature below is to certify that this patient is under my care and that I, or nurse practitioner, or a physician's teachers assistant working with me, has a face-to -face encounter with this patient.
--- NOTE | 2017-06-26 11:30 | Nephrology Progress Note ---
Date of Encounter: 06/26/17 Time of Encounter: 11:15 - Assessment and Plan (1) CAMILA (acute kidney injury) Current Visit: Yes Status: Acute CAMILA in setting of acute right sided CHF with associated liver cirrhosis most likely from chronic hepatic congestion. Renal fct improving. Creat 1.47. Documented urine output 1500cc. Will follow in office in 2-3 weeks with labs. Subjective Principal diagnosis: CHF Interval history: A/P- CAMILA in setting of acute right sided CHF with associated liver cirrhosis most likely from chronic hepatic congestion. Renal fct improving. Creat 1.53. Documented urine output 2200cc. SBP 152, AR 98-104. Will increase Cardizem. Continue to monitor, avoid nephrotoxins. Watching TV. Daighter at bedside. States being discharged home today. Objective - Vital Signs Vital signs: Vital Signs Temp Pulse Resp BP Pulse Ox 06/26/17 11:04 18 95 06/26/17 07:37 18 98 06/26/17 07:33 97.6 F 95 16 147/78 98 06/26/17 04:17 97.6 F 98 16 159/78 95 06/26/17 03:53 17 94 06/25/17 23:32 19 98 06/25/17 22:57 97.7 F 100 18 156/86 94 06/25/17 20:06 18 97 06/25/17 19:28 98.3 F 100 16 153/76 97 06/25/17 15:52 98.4 F 98 16 154/73 94 06/25/17 15:45 16 96 Intake and Output 06/25/17 06/26/17 06/26/17 23:59 07:59 15:59 Intake Total 360 / 360 Output Total 700 / 700 Balance -700 / -700 360 / 360 Intake: Oral 360 / 360 Output: Catheter 700 / 700 Other: Meal Breakfast Percent of Meal Consumed 100% Weight 95.6 kg Blood Glucose* 278 194 Patient Weight 06/26/17 23:59 Weight 95.6 kg - General Appearance General appearance: Present: well-developed, well-nourished, appears started age EENT: Present: mucous membranes moist Neck: Present: no JVD Respiratory: Present: rhonchi Cardiology: Present: edema, regular rate, regular rhythm Additional Comments: mild LE edema Gastrointestinal: Present: normoactive bowel sounds, no tenderness Integumentary: Present: warm and dry Neurologic: Present: alert and oriented x3 Psychiatric: Present: mood/affect appropriate, cooperative - Lab 06/25/17 05:41 06/26/17 05:09 Most recent lab results Calcium 9.5 mg/dL (8.6-10.8) 06/26/17 05:09 Phosphorus 4.7 mg/dL (2.3-4.7) 06/23/17 08:09 Magnesium 2.0 mg/dL (1.6-2.6) 06/25/17 05:41 Urine Creatinine 25 mg/dL 06/23/17 19:10 Urine Total Protein < 7 mg/dL (1-14) 06/23/17 19:10 - VTE Documentation of Mechanical Device: Intermittent pneumatic compression device Consult Discharge Plan - Plan Additional Instructions: Follow-up with primary care physician. Increase Lasix dose to 60 mg twice daily , continue potassium. Prednisone taper:40 mg daily for 5 days, 30 mg for 5 days , 20 mg for 5 days, 10 mg for 5 days, continue physical therapy as outpatient. Fall precautions Referrals: NONE,PCP [Primary Care Provider] - (Patient will follow up with [facility] PCP) Prescriptions: Furosemide [Lasix] 60 mg PO BID #60 tablet Omeprazole Magnesium 40 mg PO DAILY #30 capsule. Potassium Chloride [K-Tab ER] 20 meq PO DAILY #30 tablet.er predniSONE [PredniSONE] 10 mg PO DAILY 20 Days tablet
[2017-06-26] MEDS: Insulin DETEMIR 100 UNIT/ML X5UNITS SQ SCH (11:55)
== END 2017-06-26 13:36 | disposition home health service (06) | DRG 291 ==
LOC: EMEROO 16:30 → 2ANU 16:30 → SUATTDRO 21:04
PROVIDERS: ADMIT Nurse Practitioner Family; ATTEND Internal Medicine